=== PATIENT | male | born 1955 | race African-American/Black ===

== ENCOUNTER 2018-04-07 07:46 | Day surgery (SDC) | payer MEDICAID ==
[2018-04-06 13:25] LABS: Absolute Lymphocytes (CBC) 1.1 K/uL (0.7-4.9); Absolute Monocytes 0.9 K/uL (0.1-1.3); Absolute Neutrophil 2.7 K/uL (1.8-8.0); Basophils % 0.7 % (0-1.3); Eosinophils % 1.9 % (0-4.4); Hematocrit 39.2 % (39.6-49.0); Lymphocytes % 22.2 % (15.3-44.8); MCV 83.5 fL (80-100); MPV 7.7 fL (7.6-11.3); Monocytes % 18.2 % (3.3-12.3); RBC Red Blood Cell Count 4.69 M/uL (4.33-5.43)
[2018-04-06 13:41] LABS: Potassium 4.5 mmol/L (3.5-5.1)
[2018-04-06 13:44] LABS: Anisocytosis 1+; Blood Morphology Comment NOTED (NOT SEEN); Platelet Estimate INCR; Polychromasia 1+; Urine White Blood Cell Casts OK
[2018-04-07] MEDS ORDERED: Ringers Lactate 1,000 ML IV ONE (08:37)
[2018-04-07] MEDS ORDERED: CEFAZOLIN/SWI 1gm 1 GM/10 ML SYR ONE (08:37)
[2018-04-07] MEDS ORDERED: NS 0.9% VIAL 20 ML ONE (09:20)
[2018-04-07] MEDS ORDERED: HEPARIN 5000 UNIT/ML 1 ML VIAL ONE (09:21)
[2018-04-07] MEDS: LIDOCAINE 1% MPF 5 ML VIAL ONE ×2 (09:39→09:50)
[2018-04-07] MEDS ORDERED: MIDAZOLAM HCL 2 MG/2 ML INJ ONE (09:53)
[2018-04-07] MEDS ORDERED: PROPOFOL 200 MG/20 ML VIAL IV ONE ×2 (09:53→10:16)
[2018-04-07] MEDS ORDERED: LIDOCAINE 2% MPF 5 ML VIAL ONE (09:53)
--- NOTE | 2018-04-07 11:06 | RAD REPORT ---
EXAM DESCRIPTION: RAD - Fluoroscopy <1 Hour - 04/07/2018 10:54 am CLINICAL HISTORY: Device placement central venous catheter placement FINDINGS: A central venous catheter was placed into the superior vena cava. Multiple fluoroscopic sp ot images are submitted. The examination was performed by Dr. Leach Four fluoroscopic spot image is submitted. Fluoroscopy time 0.6 minutes
--- NOTE | 2018-04-07 11:06 | RAD REPORT ---
EXAM DESCRIPTION: RAD - Chest Single View - 04/07/2018 10:55 am CLINICAL HISTORY: Device placement central venous line placement COMPARISON: January 2018 FINDINGS: A central venous line has been inserted with its tip in the mid superior vena cava. A pne umothorax is not seen Right mass/right lung opacities and pleural effusion are again demonstrated. IMPRESSION: Central venous line with its tip in the mid superior vena cava
[2018-04-07] MEDS ORDERED: HYDROCODONE/APAP 7.5/325 MG TAB ONE (11:56)
[2018-04-07 12:59] VITALS: BP 120/85; TEMP 98; O2SAT 98
--- NOTE | 2018-04-07 13:39 | DS ---
Discharge Note: The patient will go to Day Surgery and home when stable. Disposition: Home. Condition: Stable. Discharge Instructions: Resume home medications and diet. Activity as tolerated. No heavy lifting. Remove outer dressing in 2 days. Shower. Keep wound clean and dry. Keep Steri-Strips on at all t imes. Follow up in my office in 2 weeks. Call for appointment. Follow up [facility] week. Tylenol No. 3 one tablet p.o. q.4 p.r.n. pain. Keep Steri-Strips on at all times. NYDIA/BRITTNEY Voice ID: [id number] Report ID: [id number]
--- NOTE | 2018-04-07 13:39 | OP ---
Date of Procedure: 04/07/2018 Surgeon: Sunny Leach MD Preoperative Diagnosis: Lung cancer. Postoperative Diagnosis: Lung cancer. Procedures Performed: Placement of right internal jugular Port-A-Cath and interpretation of intraope rative fluoroscopy. Estimated Blood Loss: Minimal. Specimen: None. Findings: Normal anatomy. Anesthesia: MAC. Complications: None. Disposition: The patient tolerated the procedure in stable condition and was taken to Recovery in go od general condition. Procedure In Detail: The patient was brought to the OR, placed in supine position. MAC anesthesia w as begun. The patient was prepped and draped in usual sterile fashion. Lidocaine 1% infiltrated loc ally. An 18-gauge needle was used to access the right IJ vein. Guidewire was passed. Position was confirmed with fluoroscopy. A 3-cm counterincision was made. Pocket created. Tunneling device was used to tunnel the catheter between the 2 wounds. Seldinger technique used. Tip of the catheter manuel agusto in the SVC under fluoroscopy. Catheter cut to appropriate size, attached to the Port-A-Cath ivan ce. Port-A-Cath device was attached to subcutaneous tissue with 3-0 Vicryl, and then 3-0 chromic use d to approximate the subcutaneous tissue and close the skin. Catheter flushed with heparin and packe d with heparin with good blood flow. Sterile dressing was applied. The patient was awakened and taken to Recovery in good general condition. NYDIA/MODDanita Voice ID: [id number] Report ID: [id number]
== END 2018-04-07 13:07 | disposition home or self-care (01) ==
LOC: OR 07:46
PROVIDERS: ATTEND Surgery
PROC: 0JH60WZ Insertion of Totally Implantable Vascular Access Device into Chest Subcutaneous Tissue and Fascia, Open Approach (ICD-10-PCS; principal; 2018-04-07 10:00)
DX: C34.91 Malignant neoplasm of unspecified part of right bronchus or lung (principal); Z86.73 Personal history of transient ischemic attack (TIA), and cerebral infarction without residual deficits
CPT/HCPCS: 36415; 71045; 76000; 80048; 85025; J0690; J1644; J2250; J2704

== ENCOUNTER 2018-04-17 13:58 | Inpatient (IN) | payer MEDICAID ==
[2018-04-17] MEDS ORDERED: NA CHLORIDE 0.9% 1,000 ML ONE (14:57)
--- NOTE | 2018-04-17 14:59 | RAD REPORT ---
EXAM DESCRIPTION: CT - Stone Protocol - 04/17/2018 2:50 pm CLINICAL HISTORY: Flank pain. ABD PAIN COMPARISON: Abdomen Pelvis Wo Contrast dated 10/25/2016; Ct Skull/Thigh dated 02/17/2018; Chest Abdo men Pelvis W Cont dated 12/02/2017 TECHNIQUE: Axial images were obtained without oral or IV contrast. Lack of contrast limits solid org an and vascular assessment. The [id number] spans the entirety of the system partially obscuring uppermost abdomen and lung bases. Coronal reformatted images were obtained and reviewed. All CT scans are performed using dose optimization technique as appropriate and may include automated exposure control or mA/KV adjustment according to patient size. FINDINGS: Moderate right pleural effusion is noted, likely chronic. Imaged portions of the liver and spleen show no suspicious findings on non-contrast imaging. The panc reas and adrenal glands are normal. No pathologic lymphadenopathy in the abdomen or pelvis. No urinary tract stones or obstructive uropathy. Small cysts suspected right kidney. No bowel obstruction, free air, free fluid or abscess. Normal appendix noted. Mild lumbosacral degenerative changes. Aortic atherosclerosis is seen. IMPRESSION: No acute intra-abdominal or pelvic finding identified. Moderate right pleural effusion, likely chronic.
--- NOTE | 2018-04-17 15:31 | RAD REPORT ---
EXAM DESCRIPTION: RAD - Chest Single View - 04/17/2018 3:24 pm CLINICAL HISTORY: MALAISE Chest pain. COMPARISON: Chest Single View dated 04/07/2018; Chest Pa And Lat (2 Views) dated 05/27/2017; Chest Si ngle View dated 05/26/2017; Chest Pa And Lat (2 Views) dated 04/14/2017 FINDINGS: Portable technique limits examination quality. Chronic right pleural effusion is noted with chronic right mid lung opacification and volume loss. Ri ght-sided venous catheter tip in the SVC. The left lung is grossly clear. The heart is normal in size . No displaced fractures.
[2018-04-17 16:04] LABS: Absolute Lymphocytes (CBC) 0.3 K/uL (0.7-4.9); Absolute Neutrophil 1.5 K/uL (1.8-8.0); Basophils % 0.3 % (0-1.3); Eosinophils % 7.4 % (0-4.4); Hematocrit 37.7 % (39.6-49.0); Lymphocytes % 16.4 % (15.3-44.8); MCH 27.6 pg (27.0-35.0); MCV 82.8 fL (80-100); MPV 9.6 fL (7.6-11.3); Monocytes % 1.2 % (3.3-12.3); RBC Red Blood Cell Count 4.56 M/uL (4.33-5.43)
[2018-04-17 16:06] LABS: Protime INR 1.08
[2018-04-17 16:20] LABS: ALT/SGPT 26 U/L (12-78); AST/SGOT 41 U/L (15-37); Alkaline Phosphatase 64 U/L (45-117); BUN Blood Urea Nitrogen 15 mg/dL (7-18); Bicarbonate 28 mmol/L (21-32); Bilirubin Direct 0.2 mg/dL (0-0.2); Bilirubin Total 0.5 mg/dL (0.2-1.0); Glucose Level 99 mg/dL (74-106); Protein, Total 6.9 g/dL (6.4-8.2); Sodium Level 141 mmol/L (136-145)
[2018-04-17 16:21] LABS: Creatine Phosphokinase 190 U/L (39-308); Lipase 229 U/L (73-393); Troponin (Emerg Dept Use Only) < 0.02 ng/mL (0.0-0.045)
--- NOTE | 2018-04-17 16:21 | RAD REPORT ---
EXAM DESCRIPTION: CT - Thorax Wo Con CLINICAL HISTORY: Chest pain WEAKNESS COMPARISON: Chest Abdomen W Con dated 03/25/2017Chest Abdomen W Con dated 03/25/2017; Chest Abdomen Pelvis W Cont dated 12/02/2017 FINDINGS: Moderate chronic right pleural effusion is noted. Ill-defined right mid and upper lung pul monary consolidation again seen, unchanged. The left lung appears emphysematous. Right-sided port catheter its tip in the SVC. No bulky intrathoracic lymphadenopathy. No lytic or blastic bone lesion. No gross upper abdominal finding. All CT scans are performed using dose optimization technique as appropriate and may include automated exposure control or mA/KV adjustment according to patient size. IMPRESSION: Moderate right pleural effusion, chronic in appearance. Right mid lung and right upper lobe chronic lung consolidation appears unchanged. Examination is limited by lack of IV contrast.
[2018-04-17 16:53] LABS: Platelet Estimate ADEQ; Urine White Blood Cell Casts OK
[2018-04-17 16:54] LABS: Blood Morphology Comment NOT SEEN (NOT SEEN)
--- NOTE | 2018-04-17 17:03 | EDPHYS ---
Physician Documentation [facility] Emergency Department Name: Danny Sommer Age: 63 yrs Sex: Male : 1955 Arrival Date: 04/17/2018 Time: 13:59 Bed 7 Private MD: Out, [facility] ED Physician Avila Burks HPI: 04/17 15:17 This 63 yrs old Black Male presents to ER via Wheelchair with complaints of Vomiting. gs 15:17 The patient presents to the emergency department with vomiting. Onset: The gs symptoms/episode began/occurred 3 day(s) ago. Possible causes: unknown. The symptoms are aggravated by nothing. The symptoms are alleviated by nothing. Associated signs and symptoms: Pertinent positives: anorexia, constipation, Pertinent negatives: dysuria, vomiting. Severity of symptoms: At their worst the symptoms were moderate in the emergency department the symptoms. The patient has experienced similar episodes in the past, a few times. The patient has been recently seen by a physician: 2 week(s) ago, had chemo. Historical: - Allergies: 14:02 NKDA; la1 - PMHx: 14:02 CVA; Hypertension; Lung Cancer; la1 - Immunization history:: Adult Immunizations up to date. - Social history:: Smoking status: Patient/guardian denies using tobacco. - Ebola Screening: : No symptoms or risks identified at this time. ROS: 15:17 All other systems are negative. gs Exam: 15:17 Head/Face: Normocephalic, atraumatic. Eyes: Pupils equal round and reactive to light, gs extra-ocular motions intact. Lids and lashes normal. Conjunctiva and sclera are non-icteric and not injected. Cornea within normal limits. Periorbital areas with no swelling, redness, or edema. ENT: Nares patent. No nasal discharge, no septal abnormalities noted. Tympanic membranes are normal and external auditory canals are clear. Oropharynx with no redness, swelling, or masses, exudates, or evidence of obstruction, uvula midline. Mucous membranes moist. Neck: Trachea midline, no thyromegaly or masses palpated, and no cervical lymphadenopathy. Supple, full range of motion without nuchal rigidity, or vertebral point tenderness. No Meningismus. Chest/axilla: Normal chest wall appearance and motion. Nontender with no deformity. No lesions are appreciated. 15:17 Abdomen/GI: Soft, non-tender, with normal bowel sounds. No distension or tympany. No guarding or rebound. No evidence of tenderness throughout. Back: No spinal tenderness. No costovertebral tenderness. Full range of motion. Skin: Warm, dry with normal turgor. Normal color with no rashes, no lesions, and no evidence of cellulitis. MS/ Extremity: Pulses equal, no cyanosis. Neurovascular intact. Full, normal range of motion. Neuro: Awake and alert, GCS 15, oriented to person, place, time, and situation. Cranial nerves II-XII grossly intact. Motor strength 5/5 in all extremities. Sensory grossly intact. Cerebellar exam normal. Normal gait. 15:17 Constitutional: The patient appears alert, awake, frail. 15:17 Cardiovascular: Rate: tachycardic, Rhythm: regular, Pulses: no pulse deficits are appreciated. 15:17 ECG was reviewed by the Attending Physician. 15:17 Respiratory: the patient does not display signs of respiratory distress, Respirations: tachypnea, Breath sounds: are clear throughout. Vital Signs: 14:05 BP 98 / 90; Pulse 131; Resp 26; Temp 98.2; Pulse Ox 98% on R/A; Weight 68.04 kg; la1 14:10 BP 107 / 87; Pulse 124; Resp 30; Pulse Ox 99% on R/A; Pain 0/10; kr2 15:24 BP 123 / 100; Pulse 108; Resp 27; Pulse Ox 100% ; kr2 17:08 Pulse 102; Resp 17; Pulse Ox 100% ; sg 14:10 Dr. Burks notified of vital signs kr2 MDM: 14:27 Patient medically screened. 15:17 Differential diagnosis: Nonspecific abd pain, gastroenteritis, dehydration,sepsis. Data reviewed: vital signs, nurses notes. 16:59 Response to treatment: the patient's symptoms have mildly improved after treatment. Physician consultation: Jayy Patel MD regarding admission, would like admission per Dr. Felecia Reyez MD. Admission orders: after a detailed discussion of the patient's condition and case, the admit orders are written by md. 04/17 14:28 Order name: Basic Metabolic Panel 04/17 14:28 Order name: Blood Culture Adult (2) 04/17 14:28 Order name: CBC with Diff; Complete Time: 16:59 04/17 14:28 Order name: CPK; Complete Time: 16:37 04/17 14:28 Order name: Lactate; Complete Time: 16:37 04/17 14:28 Order name: LFT's; Complete Time: 16:37 04/17 14:28 Order name: Lipase; Complete Time: 16:37 04/17 14:28 Order name: Procalcitonin; Complete Time: 16:49 04/17 14:28 Order name: Protime (+inr); Complete Time: 16:37 04/17 14:28 Order name: Troponin (emerg Dept Use Only); Complete Time: 16:37 04/17 14:28 Order name: Urine Microscopic Only 04/17 14:28 Order name: Basic Metabolic Panel; Complete Time: 16:37 EDNE 04/17 14:28 Order name: Blood Culture [facility] 04/17 16:29 Order name: CBC Smear Scan; Complete Time: 16:59 EDNE 04/17 14:28 Order name: Chest Single View XRAY; Complete Time: 15:41 04/17 14:28 Order name: Accucheck; Complete Time: 15:52 04/17 14:28 Order name: Cardiac monitoring; Complete Time: 14:40 04/17 14:28 Order name: EKG - Nurse/Tech; Complete Time: 15:52 04/17 14:28 Order name: IV Saline Lock - Large Bore; Complete Time: 15:52 04/17 14:28 Order name: Labs collected and sent; Complete Time: 15:52 04/17 14:28 Order name: O2 Per Protocol; Complete Time: 14:40 04/17 14:28 Order name: O2 Sat Monitoring; Complete Time: 14:40 04/17 14:28 Order name: CT Stone Protocol; Complete Time: 15:41 04/17 15:42 Order name: CT Chest Wo Con; Complete Time: 16:37 gs EC:17 Rate is 111 beats/min. Rhythm is regular. DC interval is normal. QRS interval is gs normal. QT interval is normal. T waves are Normal. No ST changes noted. Clinical impression: Abnormal EKG without significant change. Interpreted by me. Administered Medications: 15:51 Drug: NS 0.9% 1000 ml Route: IV; Rate: 1 bolus; Site: Port-a-cath; kr2 18:31 Follow up: IV Status: Completed infusion; IV Intake: 1000ml ss Point of Care Testing: Blood Glucose: 15:44 Blood Glucose: 107 mg/dL; kr2 Ranges: Critical Glucose Levels:Adult <50 mg/dl or >400 mg/dl <40 mg/dl or >180 mg/dl Disposition: 04/17/18 17:02 Hospitalization ordered by Felecia Reyez for Observation. Preliminary diagnosis are Vomiting, Dehydration. - Bed requested for Telemetry/MedSurg (observation). - Status is Observation. ak1 - Condition is Stable. - Problem is an ongoing problem. - Symptoms have improved. UTI on Admission? No Signatures: Dispatcher [employer] EDMS Bebeto Snider RN RN la1 Alondra Gonzalez RN RN ak1 Amanda Ghosh RN RN df Starr, Gregory, MD MD Hollie Davis RN RN kr2 Dee Browne RN ss Corrections: (The following items were deleted from the chart) 18:42 17:02 Hospitalization Ordered by Felecia Reyez MD for Observation. Preliminary df diagnosis is Vomiting; Dehydration. Bed requested for Telemetry/MedSurg (observation). Status is Observation. Condition is Stable. Problem is an ongoing problem. Symptoms have improved. UTI on Admission? No. gs 19:52 18:42 04/17/2018 17:02 Hospitalization Ordered by Felecia Reyez MD for Observation. ak1 Preliminary diagnosis is Vomiting; Dehydration. Bed requested for Telemetry/MedSurg (observation). Status is Observation. Condition is Stable. Problem is an ongoing problem. Symptoms have improved. UTI on Admission? No. df
--- NOTE | 2018-04-17 17:03 | ER ---
Nurse's Notes [facility] Name: Danny Sommer Age: 63 yrs Sex: Male : 1955 Arrival Date: 04/17/2018 Time: 13:59 Bed 7 Private MD: Out, [facility] Diagnosis: Vomiting;Dehydration Presentation: 04/17 14:02 Presenting complaint: Patient states: I have lung CA and I just feel bad, having N/V/D, la1 and I cant sleep at night. Transition of care: patient was not received from another setting of care. Onset of symptoms was April 17, 2018. Risk Assessment: Do you want to hurt yourself or someone else? Patient reports no desire to harm self or others. Initial Sepsis Screen: Does the patient meet any 2 criteria? RR > 20 per min. HR > 90 bpm. Does the patient have a suspected source of infection? Yes: Other: LUNG CANCER If YES to both, name of provider notified: Avila Burks MD Care prior to arrival: None. 14:02 Method Of Arrival: Wheelchair la1 14:02 Acuity: FUENTES 2 la1 Historical: - Allergies: 14:02 NKDA; la1 - PMHx: 14:02 CVA; Hypertension; Lung Cancer; la1 - Immunization history:: Adult Immunizations up to date. - Social history:: Smoking status: Patient/guardian denies using tobacco. - Ebola Screening: : No symptoms or risks identified at this time. Screenin:10 Abuse screen: Denies threats or abuse. Denies injuries from another. Nutritional kr2 screening: cachectic, history of lung cancer, reports he is on chemo at this time. Tuberculosis screening: No symptoms or risk factors identified. Fall Risk Ambulatory Aid- Crutches/Cane/Walker (15 pts). Gait- Impaired (20 pts.). Assessment: 14:10 General: Appears in no apparent distress. uncomfortable, cachectic, Behavior is calm, kr2 cooperative. Pain: Denies pain. Neuro: Level of Consciousness is awake, alert, obeys commands, Oriented to person, place, time, situation, Appropriate for age. Cardiovascular: Patient's skin is warm and dry. Rhythm is sinus tachycardia. Cardiovascular: Port-a-cath to right chest. Respiratory: Airway is patent Respiratory effort is even, unlabored, Respiratory pattern is symmetrical, tachypnea Breath sounds are diminished. GI: Abdomen is flat, non-distended, Bowel sounds present X 4 quads. EENT: Oral mucosa is dry. Derm: Skin with poor turgor Skin is pink, warm \T\ dry. 15:00 Reassessment: Patient in CT at this time. kr2 15:15 Reassessment: Patient appears in no apparent distress at this time. Patient and/or kr2 family updated on plan of care and expected duration. Pain level reassessed. Patient is alert, oriented x 3, equal unlabored respirations, skin warm/dry/pink. Vital Signs: 14:05 BP 98 / 90; Pulse 131; Resp 26; Temp 98.2; Pulse Ox 98% on R/A; Weight 68.04 kg; la1 14:10 BP 107 / 87; Pulse 124; Resp 30; Pulse Ox 99% on R/A; Pain 0/10; kr2 15:24 BP 123 / 100; Pulse 108; Resp 27; Pulse Ox 100% ; kr2 17:08 Pulse 102; Resp 17; Pulse Ox 100% ; sg 14:10 Dr. Burks notified of vital signs kr2 ED Course: 13:59 Patient arrived in ED. mr 13:59 Out, of [facility] is Private Physician. mr 14:05 Triage completed. la1 14:05 Arm band placed on left wrist. la1 14:10 Patient has correct armband on for positive identification. Placed in gown. Bed in low kr2 position. Call light in reach. Side rails up X2. security monitor on. Pulse ox on. NIBP on. Door closed. Lights dimmed. Warm blanket given. Pillow given. Head of bed elevated. 14:19 Avila Burks MD is Attending Physician. gs 14:50 CT Stone Protocol In Process Unspecified. EDMS 14:50 CT completed. Patient tolerated procedure well. Patient moved back from CT. ka1 15:20 EKG done, by ED staff, reviewed by Avila Burks MD. kr2 15:24 Chest Single View XRAY In Process Unspecified. EDMS 15:30 Accessed Port-a-Cath. Blood collected. using accessed w/ # 20 Early needle, ,sterile sg technique, per hospital protocol. Clean \T\ dry. Good blood return. Flushes easily. 15:56 Gagandeep Malave, RN is Primary Nurse. sg 16:11 CT completed. Patient moved to CT via stretcher. Patient moved back from CT. cw1 16:29 CT Chest Wo Con In Process Unspecified. EDMS 17:02 Felecia Reyez MD is Hospitalizing Provider. 19:03 No provider procedures requiring assistance completed. Patient admitted, IV remains in ak1 place. Administered Medications: 15:51 Drug: NS 0.9% 1000 ml Route: IV; Rate: 1 bolus; Site: Port-a-cath; kr2 18:31 Follow up: IV Status: Completed infusion; IV Intake: 1000ml ss Point of Care Testing: Blood Glucose: 15:44 Blood Glucose: 107 mg/dL; kr2 Ranges: Intake: 18:31 IV: 1000ml; Total: 1000ml. ss Outcome: 17:02 Decision to Hospitalize by Provider. gs 19:04 Condition: good ak1 19:04 Instructed on the need for admit. 19:51 Admitted to Med/surg accompanied by tech, via stretcher, room 214, with chart, Report ak1 called to Sharifa Daly 19:52 Patient left the ED. ak1 Signatures: Dispatcher [employer] EDMS Gagandeep Malave, RN RN sg Hank, Fartun mr Dee Browne, RN Jennifer Martinez cw1 Bebeto Snider RN RN Alondra Kraft RN RN janey1 Avila Burks MD MD gs Reaves, Karey, RN RN kr2 Jayshree Friend Corrections: (The following items were deleted from the chart) 14:05 14:02 Initial Sepsis Screen: Does the patient meet any 2 criteria? No. Patient's la1 initial sepsis screen is negative. Does the patient have a suspected source of infection? No. Patient's initial sepsis screen is negative. la1
[2018-04-17] MEDS ORDERED: ONDANSETRON 4 MG/2 ML VIAL IV PRN (19:41)
[2018-04-17] MEDS ORDERED: ACETAMINOPHEN 500 MG TAB PO PRN (19:41)
[2018-04-17 20:15] VITALS: BMI 18.0
[2018-04-17] MEDS: NA CHLORIDE 0.9% 1,000 ML IV SCH (20:31)
--- NOTE | 2018-04-17 20:49 | P.HP ---
Certification for Inpatient Patient admitted to: Observation With expected LOS: <2 Midnights Practitioner: I am a practitioner with admitting privileges, knowledge of patient current condition, hospital course, and medical plan of care. Services: Services provided to patient in accordance with Admission requirements found in Title 42 Section 412.3 of the Code of Federal Regulations Patient History Date of Service: 04/17/18 Reason for admission: gastroenteritis History of Present Illness: Mr Kemal monson 3-year-old gentleman with history of lung cancer on ongoing chemotherapy, last 1 was 2 weeks ago, who presents to ED complaining of nonspecific abdominal pain associated with nausea and vomiting. He stated that his symptoms has been going on for 3 days, he also had poor appetite. He was constipated on the 1st day when the symptoms start. He denied any fever or chills. In ER lab work remarkable for leukopenia 3.0 K, normal lactate and procalcitonin. CT chest shows chronic moderate right pleural effusion with also chronic right lower and middle lobe opacity without change. No acute abnormalities seen. CT abdomen and pelvis shows not acute abnormality either. Allergies No Known Drug Allergies Allergy (Verified 04/17/18 20:14) Unknown Home Medications: Albuterol Sulfate [Proair Hfa] 8.5 gm IH TID PRN #1 hfa.aer.[email or web address] 05/28/17 Pantoprazole [Protonix Tab*] 40 mg PO DAILYAC #30 tab 05/28/17 Diphenhydramine HCl [Sleep Aid] 25 mg PO BEDTIME PRN 04/07/18 Fluticasone Propionate [24 Hour Allergy] 9.9 ml NS DAILY 04/07/18 Methylprednisolone [Medrol dosepack] 4 mg PO DIRECTED 04/07/18 - Past Medical/Surgical History Has patient received pneumonia vaccine in the past: No Diabetic: No -: HTN -: Lung cancer -: Tobacco abuse -: COPD -: History CVA -: Foot surgery -: Surgery to the salivary gland -: Hemorrhoid surgery Psychosocial/ Personal History: The patient lives by himself. He is single. He has 5 children. - Family History Sister -: Hypertension - Social History Smoking Status: Current some day smoker Counseled patient to stop smoking for: less than 10 minutes Alcohol use: Yes CD- Drugs: No Caffeine use: Yes Place of Residence: Home Review of Systems 10-point ROS is otherwise unremarkable Physical Examination - Vital Signs Temperature: 98.2 F Blood Pressure: 123/100 Pulse: 102 Respirations: 17 - Physical Exam General: Alert, In no apparent distress, Cachectic HEENT: Atraumatic, PERRLA, Mucous membr. moist/pink, EOMI, Sclerae nonicteric Neck: Supple, 2+ carotid pulse no bruit, No LAD, Without JVD or thyroid abnormality Respiratory: Normal air movement, Diminished (Right-sided), Crackles/rales Cardiovascular: Regular rate/rhythm, Normal S1 S2 Gastrointestinal: Normal bowel sounds, No tenderness Musculoskeletal: No tenderness Integumentary: No rashes Neurological: Normal speech, Normal strength at 5/5 x4 extr, Normal tone, Normal affect Lymphatics: No axilla or inguinal lymphadenopathy - Studies Laboratory Data (last 24 hrs) 04/17/18 15:45: PT 12.8 H, INR 1.08 04/17/18 15:45: WBC 2.0 L D, Hgb 12.6 L, Hct 37.7 L, Plt Count 181 D 04/17/18 15:45: Sodium 141, Potassium 4.0, BUN 15, Creatinine 0.80, Glucose 99, Total Bilirubin 0.5, AST 41 H, ALT 26, Alkaline Phosphatase 64, Lipase 229 Assessment and Plan - Problems (Diagnosis) (1) Gastroenteritis Current Visit: Yes Status: Acute (2) COPD (chronic obstructive pulmonary disease) Onset Date: 05/27/17 Current Visit: No Status: Chronic Qualifiers: COPD type: emphysema Emphysema type: unspecified Qualified Code(s): J43.9 - Emphysema, unspecified (3) Hypertension Onset Date: 05/27/17 Current Visit: No Status: Chronic Qualifiers: Hypertension type: essential hypertension Qualified Code(s): I10 - Essential (primary) hypertension (4) Lung cancer Onset Date: 05/27/17 Current Visit: No Status: Chronic Qualifiers: Laterality: right Lung location: upper lobe of lung Qualified Code(s): C34.11 - Malignant neoplasm of upper lobe, right bronchus or lung (5) Tobacco abuse Onset Date: 05/27/17 Current Visit: No Status: Chronic - Plan Patient will be admitted to the hospital due to nonspecific abdominal pain associated with nausea vomiting, possible secondary to acute gastroenteritis. Will continue IV fluids and symptomatic medication. Will start clear liquid diet and advance as tolerated. - Advance Directives Does patient have a Living Will: No Does patient have a Durable POA for Healthcare: Yes - Code Status/Comfort Care Code Status Assessed: Yes Code Status: Full Code
[2018-04-17 23:55] LABS: Urine Appearance CLEAR; Urine Blood NEGATIVE (NEG); Urine Color DK YELLOW; Urine Glucose NEGATIVE (NEG); Urine Protein 2+ (NEG); Urine Specific Gravity >=1.030 (1.005-1.030); Urine pH 6.5 (5.0-7.0)
[2018-04-18] LABS: Urine Bilirubin NEGATIVE (NEG)
[2018-04-18 00:24] LABS: Urine Bacteria <20 /HPF (NONE SEEN); Urine Culture Reflex Order NOT NEEDED; Urine Mucus LIGHT /HPF (NONE SEEN); Urine RBC NONE SEEN /HPF (NONE SEEN)
[2018-04-18] MEDS: NA CHLORIDE 0.9% 1,000 ML IV SCH ×2 (05:48→15:41)
[2018-04-18 06:34] LABS: Absolute Lymphocytes (CBC) 0.4 K/uL (0.7-4.9); Absolute Monocytes 0.1 K/uL (0.1-1.3); Absolute Neutrophil 0.6 K/uL (1.8-8.0); Basophils % 3.2 % (0-1.3); Eosinophils % 13.6 % (0-4.4); Lymphocytes % 31.8 % (15.3-44.8); MCH 27.3 pg (27.0-35.0); MCV 82.6 fL (80-100); MPV 9.6 fL (7.6-11.3); Monocytes % 4.5 % (3.3-12.3); RBC Red Blood Cell Count 3.87 M/uL (4.33-5.43)
[2018-04-18 06:48] LABS: ALT/SGPT 24 U/L (12-78); AST/SGOT 32 U/L (15-37); Albumin 2.8 g/dL (3.4-5.0); Alkaline Phosphatase 56 U/L (45-117); BUN Blood Urea Nitrogen 15 mg/dL (7-18); Bicarbonate 25 mmol/L (21-32); Bilirubin Total 0.5 mg/dL (0.2-1.0); Glucose Level 81 mg/dL (74-106); Phosphorus 2.8 mg/dL (2.5-4.9); Potassium 4.2 mmol/L (3.5-5.1); Protein, Total 6.3 g/dL (6.4-8.2); Sodium Level 142 mmol/L (136-145)
--- NOTE | 2018-04-18 07:05 | EKG ---
Test Date: 2018-04-17 Test Time: 15:14:14 Commissioning Specialist: BERNICE MEASUREMENT RESULTS: Intervals: Rate: 111 MO: 136 QRSD: 74 QT: 332 QTc: 451 [place]: P: 81 MO: 136 QRS: -32 T: 74 INTERPRETIVE STATEMENTS: Sinus tachycardia Possible Left atrial enlargement Left axis deviation Abnormal ECG Compared to ECG 05/26/2017 16:55:03 Left-axis deviation now present Sinus bradycardia no longer present ST (T wave) deviation no longer present Early repolarization no longer present Electronically Signed On 04-18-18 07:04:23 GRAIN ELEVATOR AGENT by Syed Barreto
[2018-04-18 08:08] LABS: Platelet Estimate ADEQ; Urine White Blood Cell Casts OK
[2018-04-18 08:09] LABS: Blood Morphology Comment NOT SEEN (NOT SEEN)
--- NOTE | 2018-04-18 13:55 | P.PN ---
Subjective Date of Service: 04/18/18 Chief Complaint: gastroenteritis Subjective: No C/O voiced, Tolerating diet, Ambulating, Improving, Doing well Review of Systems 10-point ROS is otherwise unremarkable Physical Examination - Vital Signs Temperature: 99 F Blood Pressure: 125/84 Pulse: 91 Respirations: 18 Pulse Ox (%): 98 - Physical Exam General: Alert, In no apparent distress HEENT: Atraumatic, PERRLA, EOMI Neck: Supple, JVD not distended Respiratory: Clear to auscultation bilaterally, Normal air movement Cardiovascular: Regular rate/rhythm, Normal S1 S2 Gastrointestinal: Normal bowel sounds, No tenderness Musculoskeletal: No tenderness Integumentary: No rashes Neurological: Normal speech, Normal tone, Normal affect Lymphatics: No axilla or inguinal lymphadenopathy - Studies Laboratory Data (last 24 hrs) 04/17/18 15:45: PT 12.8 H, INR 1.08 04/17/18 15:45: WBC 2.0 L D, Hgb 12.6 L, Hct 37.7 L, Plt Count 181 D 04/17/18 15:45: Sodium 141, Potassium 4.0, BUN 15, Creatinine 0.80, Glucose 99, Total Bilirubin 0.5, AST 41 H, ALT 26, Alkaline Phosphatase 64, Lipase 229 Medications List Reviewed: Yes Assessment And Plan - Current Problems (Diagnosis) (1) Gastroenteritis Onset Date: 04/18/18 Current Visit: Yes Status: Acute Plan: Patient with chemotherapy related gastroenteritis. -intractable nausea and vomiting on Zofran at this time. On clear liquids tolerating well. -will BMs diet as tolerated today. -continue IV fluids for another 24 hr for dehydration anticipate discharge in 24 -48 hr (2) Lung cancer Onset Date: 05/27/17 Current Visit: No Status: Chronic Qualifiers: Laterality: right Lung location: upper lobe of lung Qualified Code(s): C34.11 - Malignant neoplasm of upper lobe, right bronchus or lung (3) COPD (chronic obstructive pulmonary disease) Onset Date: 05/27/17 Current Visit: No Status: Chronic Qualifiers: COPD type: emphysema Emphysema type: unspecified Qualified Code(s): J43.9 - Emphysema, unspecified (4) History of CVA (cerebrovascular accident) Current Visit: No Status: Chronic (5) Hypertension Onset Date: 05/27/17 Current Visit: No Status: Chronic Qualifiers: Hypertension type: essential hypertension Qualified Code(s): I10 - Essential (primary) hypertension (6) Tobacco abuse Onset Date: 05/27/17 Current Visit: No Status: Chronic (7) GERD (gastroesophageal reflux disease) Onset Date: 05/27/17 Current Visit: No Status: Suspected Qualifiers: Esophagitis presence: esophagitis presence not specified Qualified Code(s) : K21.9 - Gastro-esophageal reflux disease without esophagitis Discharge Plan: Home Plan to discharge in: 48 Hours - Code Status/Comfort Care Code Status Assessed: Yes Critical Care: No
[2018-04-18] MEDS ORDERED: ENSURE ENLIVE 237 ML CAN PO SCH (21:00)
[2018-04-18] MEDS: ENSURE ENLIVE 237 ML CAN PO SCH (21:29)
[2018-04-19] MEDS: NA CHLORIDE 0.9% 1,000 ML IV SCH ×3 (03:06→21:07)
[2018-04-19 06:08] LABS: ALT/SGPT 23 U/L (12-78); AST/SGOT 34 U/L (15-37); Albumin 2.6 g/dL (3.4-5.0); Alkaline Phosphatase 51 U/L (45-117); BUN Blood Urea Nitrogen 9 mg/dL (7-18); Bicarbonate 24 mmol/L (21-32); Bilirubin Total 0.4 mg/dL (0.2-1.0); Glucose Level 91 mg/dL (74-106); Magnesium 1.8 mg/dL (1.8-2.4); Phosphorus 2.3 mg/dL (2.5-4.9); Potassium 3.9 mmol/L (3.5-5.1); Protein, Total 6.1 g/dL (6.4-8.2); Sodium Level 139 mmol/L (136-145)
[2018-04-19 06:21] LABS: Absolute Lymphocytes (CBC) 0.4 K/uL (0.7-4.9); Absolute Monocytes 0.1 K/uL (0.1-1.3); Absolute Neutrophil 0.1 K/uL (1.8-8.0); Basophils % 6.5 % (0-1.3); Eosinophils % 19.9 % (0-4.4); Hematocrit 31.5 % (39.6-49.0); Lymphocytes % 53.5 % (15.3-44.8); MCH 27.5 pg (27.0-35.0); MCV 81.6 fL (80-100); MPV 9.4 fL (7.6-11.3); RBC Red Blood Cell Count 3.86 M/uL (4.33-5.43)
[2018-04-19 06:56] LABS: Blood Morphology Comment NOT SEEN (NOT SEEN); Platelet Estimate ADEQ; Urine White Blood Cell Casts OK
[2018-04-19] MEDS: ENSURE ENLIVE 237 ML CAN PO SCH ×2 (09:00→21:00)
[2018-04-19 10:41] LABS: Absolute Lymphocytes (CBC) 0.3 K/uL (0.7-4.9); Absolute Monocytes 0.1 K/uL (0.1-1.3); Absolute Neutrophil 0.1 K/uL (1.8-8.0); Basophils % 7.8 % (0-1.3); Eosinophils % 15.8 % (0-4.4); Hematocrit 29.6 % (39.6-49.0); Lymphocytes % 52.1 % (15.3-44.8); MCH 27.5 pg (27.0-35.0); MCV 80.6 fL (80-100); MPV 9.2 fL (7.6-11.3); Monocytes % 10.3 % (3.3-12.3); RBC Red Blood Cell Count 3.68 M/uL (4.33-5.43)
[2018-04-19] MEDS ORDERED: POTASSIUM CL SA 10 MEQ TAB PO ONE (11:01)
[2018-04-19 11:23] LABS: Anisocytosis 1+; Blood Morphology Comment NOTED (NOT SEEN); Platelet Estimate ADEQ; Platelets, Giant FEW
[2018-04-19] MEDS: POTASS/SODIUM PHOSPHATE 1 PKT POWD.PACK PO SCH ×3 (12:51→16:20)
[2018-04-19] MEDS: TBO-FILGRASTIM 480 MCG/0.8 ML SYR SQ SCH (14:24)
--- NOTE | 2018-04-19 15:33 | P.PN ---
Subjective Date of Service: 04/19/18 Chief Complaint: gastroenteritis Patient seen and examined at bedside with RN. Chart reviewed. This morning patient is complaining of having some loose stool. Patient is a very cachectic- appearing and mild distress Review of Systems 10-point ROS is otherwise unremarkable Physical Examination - Vital Signs Temperature: 97.2 F Blood Pressure: 138/86 Pulse: 89 Respirations: 16 Pulse Ox (%): 98 - Physical Exam General: Alert, Oriented x3, Cachectic, Mild distress HEENT: Atraumatic, PERRLA, EOMI Neck: Supple, JVD not distended Respiratory: Clear to auscultation bilaterally, Normal air movement Cardiovascular: Regular rate/rhythm, Normal S1 S2 Gastrointestinal: Normal bowel sounds, No tenderness Musculoskeletal: No tenderness Integumentary: No rashes Neurological: Normal speech, Normal tone, Normal affect Lymphatics: No axilla or inguinal lymphadenopathy - Studies Laboratory Data (last 24 hrs) 04/19/18 09:58: WBC 0.6 L* D, Hgb 10.1 L, Hct 29.6 L, Plt Count 200 04/19/18 05:20: Sodium 139, Potassium 3.9, BUN 9, Creatinine 0.70, Glucose 91, Phosphorus 2.3 L, Magnesium 1.8, Total Bilirubin 0.4, AST 34, ALT 23, Alkaline Phosphatase 51 04/19/18 05:20: WBC 0.7 L* D, Hgb 10.6 L, Hct 31.5 L, Plt Count 204 Medications List Reviewed: Yes Assessment And Plan - Current Problems (Diagnosis) (1) Neutropenia Current Visit: Yes Status: Acute Plan: Neutropenia with white blood cell count of 0.6 steadily declining. -patient's absolute neutrophil count today has been less than 90 -patient is at high risk for opportunistic infection along with some severe infection. -given the recent history of diarrhea and continued loose stool patient needs to be on a prophylactic antibiotics -patient will also need treatment with filgratrim till ANC > 2000 -oncology has been consulted. Recommendations appreciated at this time Qualifiers: Neutropenia type: secondary to cancer chemotherapy Qualified Code(s): D70.1 - Agranulocytosis secondary to cancer chemotherapy; T45.1X5A - Adverse effect of antineoplastic and immunosuppressive drugs, initial encounter (2) Gastroenteritis Onset Date: 04/18/18 Current Visit: Yes Status: Acute Plan: Patient with chemotherapy related gastroenteritis versus infectious gastroenteritis. -nausea and vomiting resolved today -continued to have loose stools at this time -continue IV fluids (3) Lung cancer Onset Date: 05/27/17 Current Visit: No Status: Chronic Qualifiers: Laterality: right Lung location: upper lobe of lung Qualified Code(s): C34.11 - Malignant neoplasm of upper lobe, right bronchus or lung (4) COPD (chronic obstructive pulmonary disease) Onset Date: 05/27/17 Current Visit: No Status: Chronic Qualifiers: COPD type: emphysema Emphysema type: unspecified Qualified Code(s): J43.9 - Emphysema, unspecified (5) History of CVA (cerebrovascular accident) Current Visit: No Status: Chronic (6) Hypertension Onset Date: 05/27/17 Current Visit: No Status: Chronic Qualifiers: Hypertension type: essential hypertension Qualified Code(s): I10 - Essential (primary) hypertension (7) Tobacco abuse Onset Date: 05/27/17 Current Visit: No Status: Chronic (8) GERD (gastroesophageal reflux disease) Onset Date: 05/27/17 Current Visit: No Status: Suspected Qualifiers: Esophagitis presence: esophagitis presence not specified Qualified Code(s) : K21.9 - Gastro-esophageal reflux disease without esophagitis - Plan Awaiting clinical improvement at this time. With absolute neutrophil count of less than 100 patient is at high risk for [employer] versus severe infection. Patient started on Levaquin 500 and was given filgrastim today. Will repeat CBC tomorrow to monitor for any changes Discharge Plan: Home Plan to discharge in: 48 Hours - Code Status/Comfort Care Code Status Assessed: Yes Critical Care: No
[2018-04-19] MEDS: MELATONIN 3 MG TABLET PO SCH (21:07)
[2018-04-20 05:56] LABS: Absolute Lymphocytes (CBC) 0.3 K/uL (0.7-4.9); Absolute Monocytes 0.2 K/uL (0.1-1.3); Absolute Neutrophil 0.1 K/uL (1.8-8.0); Basophils % 4.9 % (0-1.3); Eosinophils % 12.3 % (0-4.4); Hematocrit 30.2 % (39.6-49.0); MCH 27.5 pg (27.0-35.0); MCV 80.2 fL (80-100); MPV 8.8 fL (7.6-11.3); Monocytes % 25.5 % (3.3-12.3); RBC Red Blood Cell Count 3.77 M/uL (4.33-5.43)
[2018-04-20 06:15] LABS: ALT/SGPT 21 U/L (12-78); AST/SGOT 33 U/L (15-37); Albumin 2.6 g/dL (3.4-5.0); Alkaline Phosphatase 52 U/L (45-117); BUN Blood Urea Nitrogen 10 mg/dL (7-18); Bicarbonate 25 mmol/L (21-32); Bilirubin Total 0.5 mg/dL (0.2-1.0); Glucose Level 85 mg/dL (74-106); Magnesium 1.7 mg/dL (1.8-2.4); Phosphorus 3.1 mg/dL (2.5-4.9); Potassium 3.9 mmol/L (3.5-5.1); Protein, Total 6.2 g/dL (6.4-8.2); Sodium Level 137 mmol/L (136-145)
[2018-04-20 08:10] LABS: Blood Morphology Comment NOTED (NOT SEEN); Platelet Estimate ADEQ
[2018-04-20 08:11] LABS: Anisocytosis 2+; Poikilocytosis 1+
[2018-04-20] MEDS: NA CHLORIDE 0.9% 1,000 ML IV SCH ×2 (10:08→17:41)
[2018-04-20] MEDS: levoFLOXacin 500 MG TAB PO SCH (10:08)
[2018-04-20] MEDS: TBO-FILGRASTIM 480 MCG/0.8 ML SYR SQ SCH (10:09)
[2018-04-20] MEDS: ENSURE ENLIVE 237 ML CAN PO SCH ×2 (10:10→21:00)
--- NOTE | 2018-04-20 14:19 | P.PN ---
Subjective Date of Service: 04/20/18 Chief Complaint: gastroenteritis Patient seen and examined at bedside with RN. Chart reviewed. This morning patient is still complaining of having some loose stool. Patient is a very cachectic-appearing and mild distress. ANC <100 today Review of Systems 10-point ROS is otherwise unremarkable Physical Examination - Vital Signs Temperature: 99 F Blood Pressure: 145/96 Pulse: 101 Respirations: 20 Pulse Ox (%): 96 - Physical Exam General: Alert, In no apparent distress HEENT: Atraumatic, PERRLA, EOMI Neck: Supple, JVD not distended Respiratory: Clear to auscultation bilaterally, Normal air movement Cardiovascular: Regular rate/rhythm, Normal S1 S2 Gastrointestinal: Normal bowel sounds, No tenderness Musculoskeletal: No tenderness Integumentary: No rashes Neurological: Normal speech, Normal tone, Normal affect Lymphatics: No axilla or inguinal lymphadenopathy - Studies Medications List Reviewed: Yes Assessment And Plan - Current Problems (Diagnosis) (1) Neutropenia Onset Date: 04/20/18 Current Visit: Yes Status: Acute Plan: Neutropenia with white blood cell count of 0.6 steadily declining. -patient's absolute neutrophil count today has been less than 90 -patient is at high risk for opportunistic infection along with some severe infection. -given the recent history of diarrhea and continued loose stool patient needs to be on a prophylactic antibiotics -patient will also need treatment with filgratrim till ANC > 1500 -oncology has been consulted. Recommendations appreciated at this time Qualifiers: Neutropenia type: secondary to cancer chemotherapy Qualified Code(s): D70.1 - Agranulocytosis secondary to cancer chemotherapy; T45.1X5A - Adverse effect of antineoplastic and immunosuppressive drugs, initial encounter (2) Gastroenteritis Onset Date: 04/18/18 Current Visit: Yes Status: Acute Plan: Patient with chemotherapy related gastroenteritis versus infectious gastroenteritis. -nausea and vomiting resolved today -continued to have loose stools at this time -continue IV fluids (3) Lung cancer Onset Date: 05/27/17 Current Visit: No Status: Chronic Qualifiers: Laterality: right Lung location: upper lobe of lung Qualified Code(s): C34.11 - Malignant neoplasm of upper lobe, right bronchus or lung (4) COPD (chronic obstructive pulmonary disease) Onset Date: 05/27/17 Current Visit: No Status: Chronic Qualifiers: COPD type: emphysema Emphysema type: unspecified Qualified Code(s): J43.9 - Emphysema, unspecified (5) History of CVA (cerebrovascular accident) Current Visit: No Status: Chronic (6) Hypertension Onset Date: 05/27/17 Current Visit: No Status: Chronic Qualifiers: Hypertension type: essential hypertension Qualified Code(s): I10 - Essential (primary) hypertension (7) Tobacco abuse Onset Date: 05/27/17 Current Visit: No Status: Chronic (8) GERD (gastroesophageal reflux disease) Onset Date: 05/27/17 Current Visit: No Status: Suspected Qualifiers: Esophagitis presence: esophagitis presence not specified Qualified Code(s) : K21.9 - Gastro-esophageal reflux disease without esophagitis - Plan Awaiting clinical improvement at this time. With absolute neutrophil count of less than 100 patient is at high risk for severe infection. Patient started on Levaquin 500 and was given filgrastim. Will repeat CBC tomorrow to monitor for any changes Discharge Plan: Home Plan to discharge in: 48 Hours - Code Status/Comfort Care Code Status Assessed: Yes Critical Care: No
--- NOTE | 2018-04-20 18:34 | CON ---
INFECTIOUS DISEASE CONSULT History Of Present Illness: The patient is a 63-year-old male, I was consulted for leukopenia and ne utropenia. The patient is currently being treated with the Levaquin. The patient came in initially with the gastroenteritis and diarrhea. The patient denies any headache, nausea, vomiting, chest pain , abdominal pain, fevers. Has significant history of lung cancer, tobacco use, COPD, stroke, hyperte nsion, foot surgery. Past Medical History: As per HPI. Social History: Tobacco positive, alcohol negative. Family History: Noncontributory. Medication: Levaquin. See [facility] for other medication. Allergies: NO KNOWN DRUG ALLERGIES. Review of Systems: A 10-point review was performed. Physical Examination: General: This is a 63-year-old male, lying in bed, not in any acute cardiopulmonary distress. Vital Signs: Temperature 99, pulse 101, respirations 18, blood pressure 145/96. HEENT: Unremarkable. Neck: Supple. Lungs: Basal crackles. Heart: S1, S2, regular. Abdomen: Soft, nontender. Bowel sounds positive. Extremities: No edema. Laboratory Data: Shows WBC 0.7, hemoglobin 10.3, platelets are 222. Chemistry shows sodium 137, pot assium 3.9, chloride 106, bicarb 25, BUN 10, creatinine 0.8, glucose 85, albumin is 2.6. Micro data; blood cultures, no growth in [address] chest shows moderate right pleural effusion, right mid nirali ng and right upper lobe chronic lung consolidation, appears unchanged. Assessment And Plan: A 63-year-old male with the significant history of lung cancer, coming in with the neutropenia, gastroenteritis, currently being treated with Levaquin. We will recommend cefepime and Flagyl at this time. Consider getting Neupogen for neutropenia. Continue antibiotic. Monitor w vanessa blood cell count. We will follow the patient as needed. Thank you, Dr. Reyez, for consult. MIRIAN/BRITTNEY Voice ID: [id number] Report ID: [id number]
[2018-04-20] MEDS: MELATONIN 3 MG TABLET PO SCH (21:00)
[2018-04-21] MEDS: NA CHLORIDE 0.9% 1,000 ML IV SCH ×3 (04:53→21:13)
[2018-04-21 05:17] LABS: BUN Blood Urea Nitrogen 9 mg/dL (7-18); Bicarbonate 27 mmol/L (21-32); Glucose Level 89 mg/dL (74-106); Magnesium 1.5 mg/dL (1.8-2.4); Potassium 3.8 mmol/L (3.5-5.1); Sodium Level 137 mmol/L (136-145)
[2018-04-21] MEDS ORDERED: Magnesium Sulfate 2gm IVPB 2 G/50 ML BAG IV ONE (05:33)
[2018-04-21] MEDS ORDERED: POTASSIUM 25 MEQ EFFERV TAB PO ONE (05:43)
[2018-04-21] MEDS: ENSURE ENLIVE 237 ML CAN PO SCH ×2 (09:40→19:51)
[2018-04-21] MEDS: levoFLOXacin 500 MG TAB PO SCH (09:41)
[2018-04-21] MEDS: TBO-FILGRASTIM 480 MCG/0.8 ML SYR SQ SCH (09:41)
[2018-04-21 11:00] LABS: Absolute Lymphocytes (CBC) 0.4 K/uL (0.7-4.9); Absolute Monocytes 0.7 K/uL (0.1-1.3); Absolute Neutrophil 0.1 K/uL (1.8-8.0); Basophils % 2.5 % (0-1.3); Eosinophils % 6.1 % (0-4.4); Hematocrit 31.6 % (39.6-49.0); Lymphocytes % 30.6 % (15.3-44.8); MCH 27.3 pg (27.0-35.0); MCV 79.9 fL (80-100); MPV 8.8 fL (7.6-11.3); Monocytes % 53.3 % (3.3-12.3); RBC Red Blood Cell Count 3.95 M/uL (4.33-5.43)
[2018-04-21 11:43] LABS: Platelet Estimate ADEQ; Urine White Blood Cell Casts OK
[2018-04-21 11:44] LABS: Anisocytosis 1+; Blood Morphology Comment NOTED (NOT SEEN); Poikilocytosis 1+
[2018-04-21] MEDS ORDERED: CEFEPIME 1 GM/VIAL IV SCH (12:00)
[2018-04-21] MEDS: METRONIDAZOLE 500mg IVPB 500 MG/100 ML BAG IV SCH ×2 (12:13→17:06)
[2018-04-21] MEDS ORDERED: HYDROCODONE/APAP 5/325 MG TAB PO PRN (12:41)
--- NOTE | 2018-04-21 12:41 | P.PN ---
Subjective Date of Service: 04/21/18 Chief Complaint: gastroenteritis Patient seen and examined at bedside with RN. Chart reviewed. This morning patient is still complaining of having some loose stool. Patient is a very cachectic-appearing and mild distress. ANC <100 today. During rounds patient was noted to have raw meat at bedside. Patient was advised not to consume any raw meat as this could be detrimental for the patient is disease process. Patient demonstrated understanding Review of Systems 10-point ROS is otherwise unremarkable Physical Examination - Vital Signs Temperature: 98.1 F Blood Pressure: 134/88 Pulse: 94 Respirations: 20 Pulse Ox (%): 96 - Physical Exam General: Alert, In no apparent distress HEENT: Atraumatic, PERRLA, EOMI Neck: Supple, JVD not distended Respiratory: Clear to auscultation bilaterally, Normal air movement Cardiovascular: Regular rate/rhythm, Normal S1 S2 Gastrointestinal: Normal bowel sounds, No tenderness Musculoskeletal: No tenderness Integumentary: No rashes Neurological: Normal speech, Normal tone, Normal affect Lymphatics: No axilla or inguinal lymphadenopathy - Studies Medications List Reviewed: Yes Assessment And Plan - Current Problems (Diagnosis) (1) Neutropenia Onset Date: 04/20/18 Current Visit: Yes Status: Acute Plan: Neutropenia with white blood cell count of 0.6 steadily declining. -patient's absolute neutrophil count today has been less than 90 -patient is at high risk for opportunistic infection along with some severe infection. -given the recent history of diarrhea and continued loose stool patient needs to be on a prophylactic antibiotics -patient will also need treatment with filgratrim till ANC > 1500 -oncology has been consulted. Recommendations appreciated at this time Qualifiers: Neutropenia type: secondary to cancer chemotherapy Qualified Code(s): D70.1 - Agranulocytosis secondary to cancer chemotherapy; T45.1X5A - Adverse effect of antineoplastic and immunosuppressive drugs, initial encounter (2) Gastroenteritis Onset Date: 04/18/18 Current Visit: Yes Status: Acute Plan: Patient with chemotherapy related gastroenteritis versus infectious gastroenteritis. -nausea and vomiting resolved today -continued to have loose stools at this time -started on PO Flagyl at this time -continue IV fluids (3) Lung cancer Onset Date: 05/27/17 Current Visit: No Status: Chronic Qualifiers: Laterality: right Lung location: upper lobe of lung Qualified Code(s): C34.11 - Malignant neoplasm of upper lobe, right bronchus or lung (4) COPD (chronic obstructive pulmonary disease) Onset Date: 05/27/17 Current Visit: No Status: Chronic Qualifiers: COPD type: emphysema Emphysema type: unspecified Qualified Code(s): J43.9 - Emphysema, unspecified (5) History of CVA (cerebrovascular accident) Current Visit: No Status: Chronic (6) Hypertension Onset Date: 05/27/17 Current Visit: No Status: Chronic Qualifiers: Hypertension type: essential hypertension Qualified Code(s): I10 - Essential (primary) hypertension (7) Tobacco abuse Onset Date: 05/27/17 Current Visit: No Status: Chronic (8) GERD (gastroesophageal reflux disease) Onset Date: 05/27/17 Current Visit: No Status: Suspected Qualifiers: Esophagitis presence: esophagitis presence not specified Qualified Code(s) : K21.9 - Gastro-esophageal reflux disease without esophagitis - Plan Awaiting clinical improvement at this time. With absolute neutrophil count of less than 100 patient is at high risk for severe infection. Patient was switched to IV cefepime with ID consult and recommendation And to continue with filgrastim. Will repeat CBC tomorrow to monitor for any changes Discharge Plan: Home Plan to discharge in: 48 Hours - Code Status/Comfort Care Code Status Assessed: Yes Critical Care: No
[2018-04-21] MEDS: CEFEPIME/SWI 1gm 1 GM/10 ML SYR IV SCH (13:18)
[2018-04-21] MEDS: PANTOPRAZOLE 40MG TABLET PO SCH (16:31)
[2018-04-21] MEDS: hydrOXYzine HCl 25 MG TAB PO SCH (16:31)
[2018-04-21] MEDS ORDERED: MAGNESIUM SULFATE 1 gm IVPB 1 GM/100 ML BAG IV ONE (18:00)
[2018-04-21] MEDS: MELATONIN 3 MG TABLET PO SCH (21:00)
[2018-04-21] MEDS: ZOLPIDEM TARTRATE 10 MG TABLET PO SCH (21:14)
[2018-04-21] MEDS: DOXEPIN HCL 25 MG CAP PO SCH (21:14)
[2018-04-22] MEDS: METRONIDAZOLE 500mg IVPB 500 MG/100 ML BAG IV SCH ×4 (00:14→17:21)
[2018-04-22] MEDS: hydrOXYzine HCl 25 MG TAB PO SCH ×3 (00:14→16:02)
[2018-04-22 05:14] LABS: Absolute Lymphocytes (CBC) 0.7 K/uL (0.7-4.9); Absolute Monocytes 1.7 K/uL (0.1-1.3); Absolute Neutrophil 0.7 K/uL (1.8-8.0); Basophils % 1.3 % (0-1.3); Eosinophils % 2.3 % (0-4.4); Hematocrit 29.9 % (39.6-49.0); MCH 27.9 pg (27.0-35.0); MCV 80.4 fL (80-100); MPV 8.5 fL (7.6-11.3); Monocytes % 52.1 % (3.3-12.3); RBC Red Blood Cell Count 3.72 M/uL (4.33-5.43)
[2018-04-22 05:25] LABS: BUN Blood Urea Nitrogen 8 mg/dL (7-18); Bicarbonate 25 mmol/L (21-32); Glucose Level 85 mg/dL (74-106); Potassium 3.8 mmol/L (3.5-5.1); Sodium Level 141 mmol/L (136-145)
[2018-04-22] MEDS ORDERED: POTASSIUM 25 MEQ EFFERV TAB PO ONE (05:48)
[2018-04-22 07:07] LABS: Blood Morphology Comment NOT SEEN (NOT SEEN); Platelet Estimate ADEQ
[2018-04-22] MEDS: PANTOPRAZOLE 40MG TABLET PO SCH ×2 (07:30→16:03)
[2018-04-22] MEDS: ENSURE ENLIVE 237 ML CAN PO SCH ×2 (09:00→21:00)
[2018-04-22] MEDS: CEFEPIME/SWI 1gm 1 GM/10 ML SYR IV SCH (09:27)
[2018-04-22] MEDS: TBO-FILGRASTIM 480 MCG/0.8 ML SYR SQ SCH (09:27)
[2018-04-22] MEDS: DOXEPIN HCL 25 MG CAP PO SCH ×2 (09:27→21:47)
[2018-04-22] MEDS: DEXAMETHASONE 4 MG TAB PO SCH (09:29)
[2018-04-22 09:35] LABS: Dohle Bodies PRESENT; Toxic Granulation PRESENT
[2018-04-22] MEDS: NA CHLORIDE 0.9% 1,000 ML IV SCH ×2 (11:30→19:41)
--- NOTE | 2018-04-22 14:45 | P.PN ---
Subjective Date of Service: 04/22/18 Chief Complaint: gastroenteritis Patient seen and examined at bedside with RN. Chart reviewed. This morning patient is still complaining of having some loose stool. Patient is a very cachectic-appearing and mild distress. ANC <1000 today. Review of Systems 10-point ROS is otherwise unremarkable Physical Examination - Vital Signs Temperature: 98.4 F Blood Pressure: 121/88 Pulse: 103 Respirations: 18 Pulse Ox (%): 94 - Physical Exam General: Alert, In no apparent distress HEENT: Atraumatic, PERRLA, EOMI Neck: Supple, JVD not distended Respiratory: Clear to auscultation bilaterally, Normal air movement Cardiovascular: Regular rate/rhythm, Normal S1 S2 Gastrointestinal: Normal bowel sounds, No tenderness Musculoskeletal: No tenderness Integumentary: No rashes Neurological: Normal speech, Normal tone, Normal affect Lymphatics: No axilla or inguinal lymphadenopathy - Studies Medications List Reviewed: Yes Assessment And Plan - Current Problems (Diagnosis) (1) Neutropenia Onset Date: 04/20/18 Current Visit: Yes Status: Acute Plan: Neutropenia with white blood cell count of 0.7 -ANC today < 1000 -patient is at high risk for opportunistic infection along with some severe infection. -given the recent history of diarrhea and continued loose stool patient needs to be on a prophylactic antibiotics -patient will also need treatment with filgratrim till ANC > 1500 -oncology has been consulted. Recommendations appreciated at this time Qualifiers: Neutropenia type: secondary to cancer chemotherapy Qualified Code(s): D70.1 - Agranulocytosis secondary to cancer chemotherapy; T45.1X5A - Adverse effect of antineoplastic and immunosuppressive drugs, initial encounter (2) Gastroenteritis Onset Date: 04/18/18 Current Visit: Yes Status: Acute Plan: Patient with chemotherapy related gastroenteritis versus infectious gastroenteritis. -nausea and vomiting resolved today -continued to have loose stools at this time -started on PO Flagyl at this time -continue IV fluids (3) COPD (chronic obstructive pulmonary disease) Onset Date: 05/27/17 Current Visit: No Status: Chronic Qualifiers: COPD type: emphysema Emphysema type: unspecified Qualified Code(s): J43.9 - Emphysema, unspecified (4) Lung cancer Onset Date: 05/27/17 Current Visit: No Status: Chronic Qualifiers: Laterality: right Lung location: upper lobe of lung Qualified Code(s): C34.11 - Malignant neoplasm of upper lobe, right bronchus or lung (5) History of CVA (cerebrovascular accident) Current Visit: No Status: Chronic (6) Hypertension Onset Date: 05/27/17 Current Visit: No Status: Chronic Qualifiers: Hypertension type: essential hypertension Qualified Code(s): I10 - Essential (primary) hypertension (7) Tobacco abuse Onset Date: 05/27/17 Current Visit: No Status: Chronic (8) GERD (gastroesophageal reflux disease) Onset Date: 05/27/17 Current Visit: No Status: Suspected Qualifiers: Esophagitis presence: esophagitis presence not specified Qualified Code(s) : K21.9 - Gastro-esophageal reflux disease without esophagitis - Plan Awaiting clinical improvement at this time. With absolute neutrophil count of less than 100 patient is at high risk for severe infection. Patient was switched to IV cefepime with ID consult and recommendation And to continue with filgrastim. Will repeat CBC tomorrow to monitor for any changes
[2018-04-22] MEDS: MELATONIN 3 MG TABLET PO SCH (21:47)
[2018-04-22] MEDS: ZOLPIDEM TARTRATE 10 MG TABLET PO SCH (21:47)
[2018-04-23] MEDS: METRONIDAZOLE 500mg IVPB 500 MG/100 ML BAG IV SCH ×3 (01:10→11:50)
[2018-04-23] MEDS: hydrOXYzine HCl 25 MG TAB PO SCH ×2 (01:10→09:01)
[2018-04-23] MEDS: NA CHLORIDE 0.9% 1,000 ML IV SCH (05:41)
[2018-04-23 06:48] LABS: BUN Blood Urea Nitrogen 14 mg/dL (7-18); Bicarbonate 24 mmol/L (21-32); Glucose Level 113 mg/dL (74-106); Potassium 3.9 mmol/L (3.5-5.1); Sodium Level 142 mmol/L (136-145)
[2018-04-23] MEDS: ENSURE ENLIVE 237 ML CAN PO SCH (09:00)
[2018-04-23] MEDS: DOXEPIN HCL 25 MG CAP PO SCH (09:01)
[2018-04-23] MEDS: DEXAMETHASONE 4 MG TAB PO SCH (09:01)
[2018-04-23] MEDS: PANTOPRAZOLE 40MG TABLET PO SCH (09:01)
[2018-04-23] MEDS: CEFEPIME/SWI 1gm 1 GM/10 ML SYR IV SCH (09:02)
[2018-04-23] MEDS: TBO-FILGRASTIM 480 MCG/0.8 ML SYR SQ SCH (10:37)
[2018-04-23 11:17] LABS: Absolute Lymphocytes (CBC) 0.7 K/uL (0.7-4.9); Absolute Monocytes 2.6 K/uL (0.1-1.3); Absolute Neutrophil 22.5 K/uL (1.8-8.0); Basophils % 0.2 % (0-1.3); Eosinophils % 0.1 % (0-4.4); Hematocrit 30.9 % (39.6-49.0); Lymphocytes % 2.6 % (15.3-44.8); MCV 80.5 fL (80-100); MPV 8.2 fL (7.6-11.3); Monocytes % 10.1 % (3.3-12.3); RBC Red Blood Cell Count 3.83 M/uL (4.33-5.43)
[2018-04-23 11:45] LABS: Dohle Bodies PRESENT; Platelet Estimate ADEQ; Toxic Granulation PRESENT
[2018-04-23 11:46] LABS: Anisocytosis 1+; Blood Morphology Comment NOTED (NOT SEEN); Polychromasia SLIGHT
[2018-04-23 12:43] VITALS: BP 139/93; TEMP 97.9
[2018-04-23 13:13] VITALS: O2SAT 94
--- NOTE | 2018-04-23 15:34 | P.DS ---
Admission Date: 04/19/18 Discharge Date: 04/23/18 Reason for Admission: gastroenteritis Consultations: Oncology - Problems (1) Neutropenia Onset Date: 04/20/18 Current Visit: Yes Status: Acute Qualifiers: Neutropenia type: secondary to cancer chemotherapy Qualified Code(s): D70.1 - Agranulocytosis secondary to cancer chemotherapy; T45.1X5A - Adverse effect of antineoplastic and immunosuppressive drugs, initial encounter (2) Gastroenteritis Onset Date: 04/18/18 Current Visit: Yes Status: Acute (3) COPD (chronic obstructive pulmonary disease) Onset Date: 05/27/17 Current Visit: No Status: Chronic Qualifiers: COPD type: emphysema Emphysema type: unspecified Qualified Code(s): J43.9 - Emphysema, unspecified (4) Lung cancer Onset Date: 05/27/17 Current Visit: No Status: Chronic Qualifiers: Laterality: right Lung location: upper lobe of lung Qualified Code(s): C34.11 - Malignant neoplasm of upper lobe, right bronchus or lung (5) History of CVA (cerebrovascular accident) Current Visit: No Status: Chronic (6) Hypertension Onset Date: 05/27/17 Current Visit: No Status: Chronic Qualifiers: Hypertension type: essential hypertension Qualified Code(s): I10 - Essential (primary) hypertension (7) Tobacco abuse Onset Date: 05/27/17 Current Visit: No Status: Chronic (8) GERD (gastroesophageal reflux disease) Onset Date: 05/27/17 Current Visit: No Status: Suspected Qualifiers: Esophagitis presence: esophagitis presence not specified Qualified Code(s) : K21.9 - Gastro-esophageal reflux disease without esophagitis Brief History of Present Illness: Mr Sommer stain 3-year-old gentleman with history of lung cancer on ongoing chemotherapy, last 1 was 2 weeks ago, who presents to ED complaining of nonspecific abdominal pain associated with nausea and vomiting. He stated that his symptoms has been going on for 3 days, he also had poor appetite. He was constipated on the 1st day when the symptoms start. He denied any fever or chills. In ER lab work remarkable for leukopenia 3.0 K, normal lactate and procalcitonin. CT chest shows chronic moderate right pleural effusion with also chronic right lower and middle lobe opacity without change. No acute abnormalities seen. CT abdomen and pelvis shows not acute abnormality either. Hospital Course: Overall during the hospital stay patient main stable Patient was initially admitted to the hospital for gastroenteritis with diarrhea nausea and vomiting. Patient was started on IV antibiotics here in the hospital. Patient's initial CBC revealed that his absolute neutrophil count was less than 90. At that time patient was placed on Neupogen and Levaquin for prophylactic coverage. Patient was also given Flagyl p.o.. Patient had marked resolution of his symptoms while here in the hospital. Patient's white count did elevate to 23,000. Patient then was discharged home under stable condition was asked to follow up with oncology in about 1-2 days post discharge. Patient demonstrated understanding and thus was discharged home under stable condition Vital Signs/Physical Exam: Temp Pulse Resp BP Pulse Ox 97.9 F 88 18 139/93 H 94 04/23/18 12:00 04/23/18 12:00 04/23/18 12:00 04/23/18 12:00 04/23/18 12:00 General: Alert, In no apparent distress HEENT: Atraumatic, PERRLA, EOMI Neck: Supple, JVD not distended Respiratory: Clear to auscultation bilaterally, Normal air movement Cardiovascular: Regular rate/rhythm, Normal S1 S2 Gastrointestinal: Normal bowel sounds, No tenderness Musculoskeletal: No tenderness Integumentary: No rashes Neurological: Normal speech, Normal tone, Normal affect Lymphatics: No axilla or inguinal lymphadenopathy Laboratory Data at Discharge: WBC 25.9 K/uL (4.3-10.9) H* D 04/23/18 11:10 Hgb 10.4 g/dL (13.6-17.9) L 04/23/18 11:10 Hct 30.9 % (39.6-49.0) L 04/23/18 11:10 Plt Count 355 K/uL (152-406) D 04/23/18 11:10 PT 12.8 SECONDS (9.5-12.5) H 04/17/18 15:45 INR 1.08 04/17/18 15:45 Sodium 142 mmol/L (136-145) 04/23/18 06:06 Potassium 3.9 mmol/L (3.5-5.1) 04/23/18 06:06 BUN 14 mg/dL (7-18) 04/23/18 06:06 Creatinine 0.90 mg/dL (0.55-1.3) 04/23/18 06:06 Glucose 113 mg/dL (74-106) H 04/23/18 06:06 Phosphorus 3.1 mg/dL (2.5-4.9) 04/20/18 05:29 Magnesium 2.0 mg/dL (1.8-2.4) 04/22/18 04:44 Total Bilirubin 0.5 mg/dL (0.2-1.0) 04/20/18 05:29 AST 33 U/L (15-37) 04/20/18 05:29 ALT 21 U/L (12-78) 04/20/18 05:29 Alkaline Phosphatase 52 U/L (45-117) 04/20/18 05:29 Lipase 229 U/L (73-393) 04/17/18 15:45 Home Medications: Codeine/APAP [Tylenol #3*] 1 tab PO Q4H PRN 04/20/18 Dexamethasone 4 mg PO DAILY 04/20/18 Doxepin HCl 25 mg PO BID 04/20/18 Fluticasone [Flonase 50MCG Nasal [place]*] 2 sprays IH DAILY 04/20/18 Hydrocodone/Acetaminophen [[place] 5-325 Tablet] 1 tab PO Q4H PRN 04/20/18 Ondansetron [Zofran (Odt)*] 4 mg PO Q4H PRN 04/20/18 Pantoprazole Sodium [Protonix] 40 mg PO BID 04/20/18 Phenylephrine HCl/Cod/Prometh [Phenergan Vc-Codeine Syrup] 10 ml PO Q4H PRN Tiotropium Br/Olodaterol HCl [Stiolto Respimat Inhal [place]] 2 puff IH DAILY Zolpidem Tartrate [Ambien*] 10 mg PO BEDTIME 04/20/18 hydrOXYzine HCl [Atarax] 25 mg PO Q8HR 04/20/18 predniSONE [Deltasone*] 10 mg PO DAILY 04/20/18 levoFLOXacin [Levaquin] 500 mg PO DAILY #10 tab 04/23/18 metroNIDAZOLE [Flagyl] 500 mg PO Q8H #30 tablet 04/23/18 New Medications: levoFLOXacin [Levaquin] 500 mg PO DAILY #10 tab metroNIDAZOLE [Flagyl] 500 mg PO Q8H #30 tablet Patient Discharge Instructions: Please f.u with PCP and Oncologist in 1 to 2 week post discharge. New medication. Levaquin 500mg daily. Flagyl 500mg q8h daily Diet: Regular Activity: Ad nicolle Followup: Marina Neff MD [ACTIVE - CAN ADMIT] - 1 Week (Call for appointment)
== END 2018-04-23 14:00 | disposition home or self-care (01) | DRG 392 ==
LOC: ER 13:58 → ERHOLD 17:06 → 2ND 19:33 → OBSVTOIN 04-19 14:42
PROVIDERS: ADMIT Family Medicine; ATTEND Family Medicine
DX: K52.9 Noninfective gastroenteritis and colitis, unspecified (principal); C34.11 Malignant neoplasm of upper lobe, right bronchus or lung; D70.1 Agranulocytosis secondary to cancer chemotherapy; T45.1X5A Adverse effect of antineoplastic and immunosuppressive drugs, initial encounter; J43.9 Emphysema, unspecified; I10 Essential (primary) hypertension; F17.200 Nicotine dependence, unspecified, uncomplicated; K21.9 Gastro-esophageal reflux disease without esophagitis; Z86.73 Personal history of transient ischemic attack (TIA), and cerebral infarction without residual deficits
CPT/HCPCS: 36415; 71045; 71250; 74176; 76377; 80048; 80053; 80076; 81001; 82550; 82962; 83605; 83690; 83735; 84100; 84145; 84484; 85025; 85610; 87040; 87493; 93005; 96360; 96361; 99285; G0378; J0692; J1446; J3475; J7030

== ENCOUNTER 2018-06-07 14:26 | Inpatient (IN) | payer MEDICAID ==
[2018-06-07] MEDS ORDERED: NA CHLORIDE 0.9% 1,000 ML ONE (15:01)
[2018-06-07 15:41] LABS: Absolute Lymphocytes (CBC) 0.4 K/uL (0.7-4.9); Absolute Monocytes 0.1 K/uL (0.1-1.3); Absolute Neutrophil 8.5 K/uL (1.8-8.0); Basophils % 0.3 % (0-1.3); Eosinophils % 1.4 % (0-4.4); Hematocrit 29.8 % (39.6-49.0); MPV 8.7 fL (7.6-11.3); Monocytes % 1.3 % (3.3-12.3); RBC Red Blood Cell Count 3.68 M/uL (4.33-5.43)
[2018-06-07 15:57] LABS: BUN Blood Urea Nitrogen 14 mg/dL (7-18); Bicarbonate 28 mmol/L (21-32); Creatine Phosphokinase 77 U/L (39-308); Glucose Level 110 mg/dL (74-106); Potassium 4.2 mmol/L (3.5-5.1); Sodium Level 136 mmol/L (136-145); Troponin (Emerg Dept Use Only) < 0.02 ng/mL (0.0-0.045)
--- NOTE | 2018-06-07 17:13 | RAD REPORT ---
EXAM DESCRIPTION: CT - Chest For Pe Angio - 06/07/2018 4:52 pm CLINICAL HISTORY: Cough, shortness of breath, lung cancer COMPARISON: April 2018 PET scan TECHNIQUE: Dynamically enhanced axial 3 mm thick images of the chest were obtained during administra tion of <100> mL Isovue 370 IV contrast. Coronal and oblique reconstruction images were generated and reviewed. Exam utilizes a protocol for optimal evaluation of pulmonary arterial tree. Maximum intensity projections 3D imaging was utilized All CT scans are performed using dose optimization technique as appropriate and may include automated exposure control or mA/KV adjustment according to patient size. FINDINGS: A pulmonary embolus is not seen. A thoracic aortic aneurysm is not noted. A very large right pleural effusion has increased in size since the prior exam Right lung opacities represent a combination of neoplasm and atelectasis. Small left pleural effusion. Left lung is clear IMPRESSION: Negative for a pulmonary embolism. Very large right pleural effusion
--- NOTE | 2018-06-07 17:14 | RAD REPORT ---
EXAM DESCRIPTION: Andreia Single View06/07/2018 3:12 pm CLINICAL HISTORY: Shortness of breath COMPARISON: April 2018 FINDINGS: Very large right pleural effusion has increased in size. Right lung opacities represent a combination of atelectasis and mass Left lung appears clear of acute infiltrate. Central venous catheter has its tip in the superior vena cava
--- NOTE | 2018-06-07 17:41 | ER ---
Nurse's Notes [facility] Name: Danny Sommer Age: 63 yrs Sex: Male : 1955 Arrival Date: 06/07/2018 Time: 14:27 Bed 7 Private MD: Dominic Valdez E Diagnosis: Pleural effusion, not elsewhere classified;Dyspnea, unspecified;Dehydration Presentation: 06/07 14:30 Presenting complaint: Patient states: im not breathing right, very short of breath; it hj started about a week ago; reports cough, hx of lung cancer; denies fever and chills;. Transition of care: patient was not received from another setting of care. Onset of symptoms was June 07, 2018. Risk Assessment: Do you want to hurt yourself or someone else? Patient reports no desire to harm self or others. Initial Sepsis Screen: Does the patient meet any 2 criteria? No. Patient's initial sepsis screen is negative. Does the patient have a suspected source of infection? No. Patient's initial sepsis screen is negative. Care prior to arrival: None. 14:30 Method Of Arrival: Ambulatory 14:30 Acuity: FUENTES 3 hj Triage Assessment: 14:32 General: Appears in no apparent distress. uncomfortable, Behavior is calm, cooperative, hj appropriate for age. Pain: Denies pain. Respiratory: Reports shortness of breath Onset: The symptoms/episode began/occurred last week, the patient has moderate shortness of breath. Historical: - Allergies: 14:32 NKDA; hj - PMHx: 14:32 CVA; Hypertension; Lung Cancer; hj - PSHx: 14:32 None; hj - Immunization history:: Adult Immunizations up to date. - Social history:: Smoking status: Patient/guardian denies using tobacco, Patient/guardian denies using alcohol. - Ebola Screening: : Patient negative for fever greater than or equal to 101.5 degrees Fahrenheit, and additional compatible Ebola Virus Disease symptoms Patient denies exposure to infectious person Patient denies travel to an Ebola-affected area in the 21 days before illness onset. - Family history:: not pertinent. - Hospitalizations: : No recent hospitalization is reported. Screenin:33 Abuse screen: Denies threats or abuse. Denies injuries from another. Nutritional hj screening: No deficits noted. Tuberculosis screening: No symptoms or risk factors identified. Fall Risk None identified. Assessment: 14:33 Cardiovascular: Rhythm is. Respiratory: Airway is patent Respiratory effort is even, hj unlabored, Respiratory pattern is regular, symmetrical, 14:50 General: Appears in no apparent distress. uncomfortable, slender, Behavior is calm, sv cooperative, appropriate for age. Pain: Denies pain. Neuro: Level of Consciousness is awake, alert, obeys commands, Oriented to person, place, time, situation, Moves all extremities. Full function. Cardiovascular: Heart tones S1 S2 present Capillary refill is > 3 seconds in bilateral fingers Patient's skin is warm and dry. Pulses are 2+ in right radial artery and left radial artery Rhythm is sinus tachycardia. Respiratory: Airway is patent Respiratory effort is even, shallow, Respiratory pattern is symmetrical, tachypnea Breath sounds are diminished in left posterior lower lobe, right posterior middle lobe and right posterior lower lobe. EENT: Oral mucosa is dry. Derm: Skin is dry, Skin is normal. 15:34 Reassessment: Brea [phone]. sv 15:50 Reassessment: Patient appears in no apparent distress at this time. No changes from sv previously documented assessment. Patient and/or family updated on plan of care and expected duration. Pain level reassessed. Patient is alert, oriented x 3, equal unlabored respirations, skin warm/dry/pink. 16:58 Reassessment: Patient appears in no apparent distress at this time. No changes from sv previously documented assessment. Patient and/or family updated on plan of care and expected duration. Pain level reassessed. Patient is alert, oriented x 3, equal unlabored respirations, skin warm/dry/pink. 18:09 Reassessment: Patient appears in no apparent distress at this time. No changes from sv previously documented assessment. Patient and/or family updated on plan of care and expected duration. Pain level reassessed. Patient is alert, oriented x 3, equal unlabored respirations, skin warm/dry/pink. Vital Signs: 14:33 BP 101 / 68; Pulse 120; Resp 20; Temp 100.3(O); Pulse Ox 100% on R/A; Weight 68.04 kg; hj Height 6 ft. 1 in. (185.42 cm); Pain 0/10; 15:25 BP 111 / 83; Pulse 105 MON; Resp 19; Pulse Ox 100% on 2 lpm NC; sv 16:08 BP 114 / 85; Pulse 100; Resp 28; Pulse Ox 100% on 2 lpm NC; sv 16:53 BP 134 / 91; Pulse 101; Resp 27; Temp 98.7(O); Pulse Ox 100% 2 lpm ; sv 17:49 BP 130 / 83; Pulse 103; Resp 23; Pulse Ox 100% on 2 lpm NC; sv 14:33 Body Mass Index 19.79 (68.04 kg, 185.42 cm) hj 15:25 Sinus tachycardia sv ED Course: 14:27 Patient arrived in ED. mr 14:28 Dominic Valdez MD is Private Physician. mr 14:32 Triage completed. hj 14:33 Arm band placed on right wrist. hj 14:33 Patient has correct armband on for positive identification. Placed in gown. Bed in low hj position. Call light in reach. Side rails up X 1. Adult w/ patient. 14:39 Yusef Moreno MD is Attending Physician. rn 14:40 Kathy Badillo RN is Primary Nurse. sv 14:40 Awaiting ED provider evaluation. sv 14:55 X-ray(s) taken. sv 15:10 Initial lab(s) drawn, by me, sent to lab. First set of blood cultures drawn by me. sv Accessed Port-a-Cath. Blood collected. using accessed w/ # 20 Early needle, ,sterile technique, per hospital protocol. Clean \T\ dry. Dressing intact. Good blood return. Flushes easily. 15:13 Chest Single View XRAY In Process Unspecified. EDMS 15:25 Second set of blood cultures drawn by me. sv 15:42 EKG done, by orthotic finish grinding technician. reviewed by Yusef Moreno MD. sm3 16:52 Radiology exam delayed due to lab results not completed at this time. (BUN/Creatinine). nj 16:53 Awaiting radiology results. Awaiting re-evaluation by ER provider. sv 16:53 CT Chest For PE Angio In Process Unspecified. EDMS 16:57 CT completed. Patient tolerated procedure well. Patient moved back from CT. nj 16:58 IV is patent, is intact, with fluids infusing freely, Flushed right port-a-cath with 5 sv ml normal saline. 17:40 Jayy Patel MD is Hospitalizing Provider. rn 18:07 No provider procedures requiring assistance completed. Patient admitted, IV remains in sv place. intact. Administered Medications: 15:33 Drug: NS 0.9% 1000 ml Route: IV; Rate: 1000 ml; Site: Port-a-cath; sv 16:30 Follow up: Response: No adverse reaction; IV Status: Completed infusion; IV Intake: sv 1000ml 17:18 CANCELLED (Duplicate Order): Metoprolol TARTRATE (Lopressor) 50 mg PO once furnace mechanic: 16:30 IV: 1000ml; Total: 1000ml. sv Outcome: 17:41 Decision to Hospitalize by Provider. rn 18:09 Admitted to Tele accompanied by tech, via stretcher, room 204, with oxygen, with chart, sv Report called to Dav REINOSO 18:09 Condition: stable 18:09 Instructed on the need for admit. 18:21 Patient left the ED. sv Signatures: Dispatcher [employer] EDKathy Adams, ARLETH Mckinney, Yusef Mesa MD MD rn Joaquin, Henry, RN RN hj Jordan, Saida Blackwell 3 Corrections: (The following items were deleted from the chart) 14:36 14:33 Pulse 115bpm; Resp 20bpm; Pulse Ox 100% RA; Temp 100.3F Oral; 68.04 kg; Height 6 hj ft. 1 in.; BMI: 19.7; Pain 0/10; hj 14:36 14:33 BP 101 / 68; Pulse 115bpm; Resp 20bpm; Pulse Ox 100% RA; Temp 100.3F Oral; 68.04 hj kg; Height 6 ft. 1 in.; BMI: 19.7; Pain 0/10; hj 16:57 16:53 BP 134 / 91; Pulse 101bpm; Resp 27bpm; Pulse Ox 100% 2 lpm; sv sv 16:58 16:58 IV is patent, is intact, with fluids infusing freely, sv sv
--- NOTE | 2018-06-07 17:42 | EDPHYS ---
Physician Documentation [facility] Name: Danny Sommer Age: 63 yrs Sex: Male : 1955 Arrival Date: 06/07/2018 Time: 14:27 Bed 7 Private MD: Dominic Valdez E ED Physician Yusef Moreno HPI: 06/07 15:45 This 63 yrs old Black Male presents to ER via Ambulatory with complaints of Breathing rn Difficulty. 15:45 The patient has shortness of breath at rest. Onset: The symptoms/episode began/occurred rn 2 day(s) ago. Duration: The symptoms are continuous. The patient's shortness of breath is aggravated by exertion, light activity, talking, walking. Severity of symptoms: At their worst the symptoms were moderate in the emergency department the symptoms are unchanged. The patient has experienced similar episodes in the past. The patient has not recently seen a physician. Reports worsening sob and productive cough, + generalized weakness, difficulty walking and not eating/drinking due to weakness.. Historical: - Allergies: 14:32 NKDA; hj - PMHx: 14:32 CVA; Hypertension; Lung Cancer; hj - PSHx: 14:32 None; hj - Immunization history:: Adult Immunizations up to date. - Social history:: Smoking status: Patient/guardian denies using tobacco, Patient/guardian denies using alcohol. - Ebola Screening: : Patient negative for fever greater than or equal to 101.5 degrees Fahrenheit, and additional compatible Ebola Virus Disease symptoms Patient denies exposure to infectious person Patient denies travel to an Ebola-affected area in the 21 days before illness onset. - Family history:: not pertinent. - Hospitalizations: : No recent hospitalization is reported. ROS: 15:45 Constitutional: Negative for fever, chills, and weight loss, Eyes: Negative for injury, rn pain, redness, and discharge, Neck: Negative for injury, pain, and swelling, Cardiovascular: Negative for chest pain, palpitations, and edema, Respiratory: + for sob and cough Abdomen/GI: Negative for abdominal pain, nausea, vomiting, diarrhea, and constipation, MS/Extremity: Negative for injury and deformity, Skin: Negative for injury, rash, and discoloration, Neuro: Negative for headache, numbness, tingling, and seizure. Exam: 15:45 Constitutional: Thin male, no acute distress Head/Face: Normocephalic, atraumatic. rn Eyes: Sunken eyes ENT: dry MM, no stridor Cardiovascular: tachycardic, regular, no murmur Respiratory: Mild tachypnea with diminished breath sounds bilateral bases Abdomen/GI: soft, non-tender Skin: Warm, dry, no evidence of cellulitis. MS/ Extremity: Pulses equal, no cyanosis. Neurovascular intact. Full, normal range of motion. Equal circumference. Neuro: Awake and alert, GCS 15, oriented to person, place, time, and situation. Cranial nerves II-XII grossly intact. Motor strength 4/5 in all extremities. Sensory grossly intact. Vital Signs: 14:33 BP 101 / 68; Pulse 120; Resp 20; Temp 100.3(O); Pulse Ox 100% on R/A; Weight 68.04 kg; hj Height 6 ft. 1 in. (185.42 cm); Pain 0/10; 15:25 BP 111 / 83; Pulse 105 MON; Resp 19; Pulse Ox 100% on 2 lpm NC; sv 16:08 BP 114 / 85; Pulse 100; Resp 28; Pulse Ox 100% on 2 lpm NC; sv 16:53 BP 134 / 91; Pulse 101; Resp 27; Temp 98.7(O); Pulse Ox 100% 2 lpm ; sv 17:49 BP 130 / 83; Pulse 103; Resp 23; Pulse Ox 100% on 2 lpm NC; sv 14:33 Body Mass Index 19.79 (68.04 kg, 185.42 cm) hj 15:25 Sinus tachycardia sv MDM: 14:39 Patient medically screened. rn 17:39 Differential diagnosis: Anemia Bronchitis Chronic Obstructive Pulmonary Disease rn Myocardial Infarction pneumonia, Pneumothorax pulmonary edema, pleural effusion. Data reviewed: vital signs, nurses notes, lab test result(s), EKG, radiologic studies, CT scan, plain films, and as a result, I will admit patient. Counseling: I had a detailed discussion with the patient and/or guardian regarding: the historical points, exam findings, and any diagnostic results supporting the discharge/admit diagnosis, lab results, radiology results, the need for further work-up and treatment in the hospital. Response to treatment: the patient's symptoms have mildly improved after treatment, and as a result, I will admit patient. Admission orders: after a detailed discussion of the patient's condition and case, the admit orders are written by me. ED course: Contacted Dr. Patel for admission, he contacted Dr. Auguste for consultation regarding pleurocentesis, will see and eval patient, will admit. . 06/07 14:50 Order name: Basic Metabolic Panel; Complete Time: 16:05 rn 06/07 14:50 Order name: Blood Culture Adult (2) rn 06/07 14:50 Order name: CBC with Diff rn 06/07 14:50 Order name: CPK; Complete Time: 16:05 rn 06/07 14:50 Order name: Lactate; Complete Time: 16:05 rn 06/07 14:50 Order name: Procalcitonin; Complete Time: 16:25 rn 06/07 14:50 Order name: Troponin (emerg Dept Use Only); Complete Time: 16:05 rn 06/07 14:50 Order name: Urine Microscopic Only rn 06/07 14:50 Order name: Chest Single View XRAY; Complete Time: 17:17 rn 06/07 14:50 Order name: Flu; Complete Time: 16:05 rn 06/07 17:48 Order name: Basic Metabolic Panel EDMS 06/07 17:48 Order name: Basic Metabolic Panel EDMS 06/07 17:48 Order name: CBC with Automated Diff EDMS 06/07 17:48 Order name: CBC with Automated Diff EDMS 06/07 14:50 Order name: Cardiac monitoring; Complete Time: 15:23 rn 06/07 14:50 Order name: EKG - Nurse/Tech; Complete Time: 15:35 rn 06/07 14:50 Order name: IV Saline Lock - Large Bore; Complete Time: 15:23 rn 06/07 14:50 Order name: Labs collected and sent; Complete Time: 15:23 rn 06/07 14:50 Order name: O2 Per Protocol; Complete Time: 15:23 rn 06/07 14:50 Order name: O2 Sat Monitoring; Complete Time: 15:24 rn 06/07 16:06 Order name: CT Chest For PE Angio; Complete Time: 17:17 rn 06/07 16:13 Order name: EKG Electrocardiogram; Complete Time: 16:13 EDMS 06/07 17:48 Order name: CONS Physician Consult EDMS Administered Medications: 15:33 Drug: NS 0.9% 1000 ml Route: IV; Rate: 1000 ml; Site: Port-a-cath; sv 16:30 Follow up: Response: No adverse reaction; IV Status: Completed infusion; IV Intake: sv 1000ml 17:18 CANCELLED (Duplicate Order): Metoprolol TARTRATE (Lopressor) 50 mg PO once rn Disposition: 06/07/18 17:41 Hospitalization ordered by Jayy Patel for Inpatient Admission. Preliminary diagnosis are Pleural effusion, not elsewhere classified, Dyspnea, unspecified, Dehydration. - Bed requested for Telemetry/MedSurg (Inpatient). - Status is Inpatient Admission. sv - Condition is Stable. - Problem is new. - Symptoms are unchanged. UTI on Admission? No Signatures: Dispatcher [employer] EDKathy Adams, RN RN Erika Yeager RN RN Yusef [place] MD MD rn Joaquin, Henry RN RN Corrections: (The following items were deleted from the chart) 17:02 14:50 Accucheck ordered. rn sv 17:18 17:18 Metoprolol TARTRATE (Lopressor) 50 mg PO once ordered. rn rn 17:56 17:41 Hospitalization Ordered by Jayy Patel MD for Inpatient Admission. Preliminary dw diagnosis is Pleural effusion, not elsewhere classified; Dyspnea, unspecified; Dehydration. Bed requested for Telemetry/MedSurg (Inpatient). Status is Inpatient Admission. Condition is Stable. Problem is new. Symptoms are unchanged. UTI on Admission? No. rn 18:21 17:56 06/07/2018 17:41 Hospitalization Ordered by Jayy Patel MD for Inpatient sv Admission. Preliminary diagnosis is Pleural effusion, not elsewhere classified; Dyspnea, unspecified; Dehydration. Bed requested for Telemetry/MedSurg (Inpatient). Status is Inpatient Admission. Condition is Stable. Problem is new. Symptoms are unchanged. UTI on Admission? No. dw
[2018-06-07] MEDS ORDERED: IPRATROPIUM BROM 0.5MG/2.5ML NEB PRN (17:45)
[2018-06-07] MEDS ORDERED: ACETAMINOPHEN 500 MG TAB PO PRN (17:45)
[2018-06-07] MEDS ORDERED: ONDANSETRON 4 MG/2 ML VIAL IV PRN (17:45)
[2018-06-07] MEDS ORDERED: ALBUTEROL 2.5 MG/3 ML NEB SOL NEB PRN (17:45)
[2018-06-07] MEDS: NA CHLORIDE 0.9% 1,000 ML IV SCH (19:07)
[2018-06-07] MEDS ORDERED: HYDROCODONE/APAP 10/325 TAB PO PRN (19:45)
[2018-06-07] MEDS ORDERED: HYDROMORPHONE HCL 1 MG/ML INJ IV PRN (19:45)
[2018-06-07 21:59] LABS: Anisocytosis 2+; Blood Morphology Comment NOTED (NOT SEEN); Macrocytosis 2+; Platelet Estimate INCR
--- NOTE | 2018-06-07 22:55 | EKG ---
Test Date: 2018-06-07 Test Time: 15:35:45 Brick Pitcher: JENNIFER MEASUREMENT RESULTS: Intervals: Rate: 100 AL: 136 QRSD: 80 QT: 342 QTc: 441 [place]: P: 68 AL: 136 QRS: 17 T: 69 INTERPRETIVE STATEMENTS: Normal sinus rhythm Septal infarct, age undetermined Abnormal ECG Compared to ECG 04/17/2018 15:14:14 Myocardial infarct finding now present Sinus tachycardia no longer present Left-axis deviation no longer present Electronically Signed On 06-07-18 22:54:06 ORTHOPEDIC TECHNICIAN by Syed Barreto
[2018-06-08] MEDS: guaiFENesin 100 MG/5 ML UCUP PO PRN ×2 (01:01→15:45)
[2018-06-08] MEDS: NA CHLORIDE 0.9% 1,000 ML IV SCH (03:24)
[2018-06-08 06:20] LABS: Absolute Lymphocytes (CBC) 0.4 K/uL (0.7-4.9); Absolute Monocytes 0.2 K/uL (0.1-1.3); Basophils % 1.3 % (0-1.3); Eosinophils % 2.1 % (0-4.4); Hematocrit 26.5 % (39.6-49.0); Lymphocytes % 7.4 % (15.3-44.8); MPV 8.6 fL (7.6-11.3); Monocytes % 2.6 % (3.3-12.3); RBC Red Blood Cell Count 3.26 M/uL (4.33-5.43)
[2018-06-08 06:33] LABS: BUN Blood Urea Nitrogen 11 mg/dL (7-18); Bicarbonate 26 mmol/L (21-32); Glucose Level 92 mg/dL (74-106); Potassium 4.4 mmol/L (3.5-5.1); Sodium Level 139 mmol/L (136-145)
--- NOTE | 2018-06-08 08:40 | P.CNS ---
Date of Consult: 06/08/18 Reason for Consult: Shortness of breath history of lung cancer Chief Complaint: Shortness of breath pleural effusion History of Present Illness: Patient is 63 years of age with a history of lung cancer getting chemotherapy as been having progressive shortness of breath for the past week eyes any cough sputum hemoptysis fever or chills he has progression of his opacification on the right side according to radiologist he does have a significant effusion on the right side in addition to mediastinal shift and possible intestinal pleural effusion a progression of his lung cancer Allergies No Known Drug Allergies Allergy (Verified 04/17/18 20:14) Unknown Home Medications: Hydrocodone/Acetaminophen [[place] 5-325 Tablet] 1 tab PO Q4H PRN 04/20/18 Phenylephrine HCl/Cod/Prometh [Phenergan Vc-Codeine Syrup] 10 ml PO Q4H PRN Tiotropium Br/Olodaterol HCl [Stiolto Respimat Inhal [place]] 2 puff IH DAILY Suvorexant [Belsomra] 10 mg PO BEDTIME 06/07/18 - Past Medical/Surgical History Diabetic: No -: HTN -: Lung cancer -: Tobacco abuse -: COPD -: History CVA -: Foot surgery -: Surgery to the salivary gland -: Hemorrhoid surgery Psychosocial/ Personal History: The patient lives by himself. He is single. He has 5 children. - Family History Sister Medical History: Hypertension Mother Medical History: Cancer Father History Unknown: Yes - Social History Smoking Status: Current every day smoker Alcohol use: No CD- Drugs: No Caffeine use: Yes Place of Residence: Home Review of Systems General: Weakness, Malaise Respiratory: Cough, Shortness of Breath Neurological: Weakness Physical Examination Temp Pulse Resp BP Pulse Ox 98.2 F 105 H 17 110/71 94 06/08/18 04:00 06/08/18 04:00 06/08/18 04:00 06/08/18 04:00 06/08/18 04:00 General: Alert, Moderate distress HEENT: Atraumatic Neck: Supple Respiratory: Diminished (Markedly diminished air entry on the right side with tracheal deviation to the right) Cardiovascular: No edema, Regular rate/rhythm Gastrointestinal: Normal bowel sounds, Soft and benign Laboratory Data (last 24 hrs) 06/07/18 15:10: WBC 9.2, Hgb 10.0 L, Hct 29.8 L, Plt Count 498 H 06/07/18 15:10: Sodium 136, Potassium 4.2, BUN 14, Creatinine 0.82, Glucose 110 H - Problems (1) Lung cancer Onset Date: 05/27/17 Current Visit: No Status: Chronic Plan: Patient is 63 years of age with I suspect terminal lung cancer he has been receiving some chemotherapy admitted with worsening shortness of breath no evidence of pulmonary embolism he has an effusion on the right side tracheal deviation to the right with possible progression of his lung can in the mediastinum he has mild and effusion or progression of his cancer chemistries reviewed is mildly anemic due to volume loss on the right side thoracentesis would be contraindicated at this time I suggest referral to hospice care comfort measures and oncology consultation Qualifiers: Laterality: right
[2018-06-08] MEDS ORDERED: TIOTROPIUM BR IH SCH (09:00)
[2018-06-08] MEDS ORDERED: OLODATEROL HCL IH SCH (09:00)
[2018-06-08] MEDS: ARFORMOTEROL TARTRATE 15 MCG/2 ML VIAL.NEB NEB SCH ×2 (09:11→20:05)
[2018-06-08 09:23] LABS: Anisocytosis 1+; Blood Morphology Comment NOTED (NOT SEEN)
[2018-06-08] MEDS: METHYLPREDNISOLONE 40 MG INJ IV SCH ×2 (09:26→17:12)
[2018-06-08 09:36] LABS: Platelet Estimate INCR
--- NOTE | 2018-06-08 09:36 | P.HP ---
Certification for Inpatient Patient admitted to: Inpatient With expected LOS: >2 Midnights Patient will require the following post-hospital care: Hospice Practitioner: I am a practitioner with admitting privileges, knowledge of patient current condition, hospital course, and medical plan of care. Services: Services provided to patient in accordance with Admission requirements found in Title 42 Section 412.3 of the Code of Federal Regulations Patient History Date of Service: 06/08/18 Primary Care Provider: Amanda Reason for admission: Shortness of breath pleural effusion History of Present Illness: Patient of mine with a history of stage 3 adenocarcinoma. He has been getting progressively more short of breath. The patient came to the ER. He was found to have an enlargement of a right pleural effusion. The patient has this in the past. However has enlarged. He has some mediastinal effusion. The patient has some tracheal deviation to the effusion. The patient was seen this morning by Dr. Singh. Who recommended hospice Allergies No Known Drug Allergies Allergy (Verified 04/17/18 20:14) Unknown Home Medications: Hydrocodone/Acetaminophen [[place] 5-325 Tablet] 1 tab PO Q4H PRN 04/20/18 Phenylephrine HCl/Cod/Prometh [Phenergan Vc-Codeine Syrup] 10 ml PO Q4H PRN Tiotropium Br/Olodaterol HCl [Stiolto Respimat Inhal [place]] 2 puff IH DAILY Suvorexant [Belsomra] 10 mg PO BEDTIME 06/07/18 - Past Medical/Surgical History Has patient received pneumonia vaccine in the past: No Diabetic: No -: HTN -: Lung cancer -: Tobacco abuse -: COPD -: History CVA -: Foot surgery -: Surgery to the salivary gland -: Hemorrhoid surgery Psychosocial/ Personal History: The patient lives by himself. He is single. He has 5 children. - Family History Sister -: Hypertension Mother -: Cancer Father History Unknown: Yes - Social History Smoking Status: Former smoker Alcohol use: No CD- Drugs: No Caffeine use: Yes Place of Residence: Home Review of Systems 10-point ROS is otherwise unremarkable General: Weakness, Malaise Respiratory: Shortness of Breath Physical Examination - Vital Signs Temperature: 98.2 F Blood Pressure: 110/71 Pulse: 105 Respirations: 17 Pulse Ox (%): 94 - Physical Exam General: Alert, In no apparent distress HEENT: Atraumatic, PERRLA, Mucous membr. moist/pink, EOMI, Sclerae nonicteric Neck: Supple, 2+ carotid pulse no bruit, No LAD, Without JVD or thyroid abnormality Respiratory: Diminished, Crackles/rales Cardiovascular: Regular rate/rhythm, Normal S1 S2 Gastrointestinal: Normal bowel sounds, No tenderness Musculoskeletal: No tenderness Integumentary: No rashes Neurological: Normal gait, Normal speech, Normal strength at 5/5 x4 extr, Normal tone, Normal affect Lymphatics: No axilla or inguinal lymphadenopathy - Studies Laboratory Data (last 24 hrs) 06/07/18 15:10: WBC 9.2, Hgb 10.0 L, Hct 29.8 L, Plt Count 498 H 06/07/18 15:10: Sodium 136, Potassium 4.2, BUN 14, Creatinine 0.82, Glucose 110 H Microbiology Data (last 24 hrs): 06/07/18 15:20 Nasopharnyx Influenza Type A Antigen Screen - Final 06/07/18 15:20 Nasopharnyx Influenza Type B Antigen Screen - Final Assessment and Plan - Problems (Diagnosis) (1) End of life care Current Visit: Yes Status: Acute Plan: Patient most likely needs hospice. Will have him seen by Dr. Owens. If she agrees. Will consult hospice (2) Lung cancer Onset Date: 05/27/17 Current Visit: No Status: Chronic Plan: Has been seen by Dr. Singh. Will await Dr. Shah consult Qualifiers: Laterality: right Discharge Plan: Other Plan to discharge in: 48 Hours - Advance Directives Does patient have a Living Will: No Does patient have a Durable POA for Healthcare: Yes - Code Status/Comfort Care Code Status Assessed: No Physician Review: Patient Assessed, Agree with Above Assessment and Plan Critical Care: No Time Spent Managing Pts Care (In Minutes): 60
[2018-06-08] MEDS: IPRATROPIUM BROM 0.5MG/2.5ML NEB SCH ×2 (14:11→20:05)
[2018-06-08 18:10] VITALS: BMI 17.9
[2018-06-08] MEDS: BUPROPION HCL XL 150 MG TAB PO SCH (18:22)
[2018-06-08] MEDS ORDERED: clonazePAM 0.5 MG TAB PO PRN (19:43)
[2018-06-08] MEDS: ZOLPIDEM TARTRATE 5 MG TABLET PO PRN (20:35)
[2018-06-08] MEDS ORDERED: SUVOREXANT 10 MG PO SCH (21:00)
--- NOTE | 2018-06-08 23:41 | P.PN ---
Date of Service: 06/08/18 (Oncology) Pt seen today at 4pm. Patient's family at bedside. Mr Sommer is known to me from clinic for metastatic lung cancer. He was initially diagnosed with Lung adenicarcinoma in Feb 2014. He has received chemotherapy and radiation when deemed not a surgical candidate. He progressed to have metastatic disease in Apr 2015 and was started on immunotherapy with keytruda in May 2015 which he received for atleast 2 years with reasonable disease status. Post keyruda he was closely monitored and recently started on 3rd line chemotherapy with Taxotere on disease progression on PET scan. Recent PET scan in Apr 2018 did show mild improvement in the size and avidity of the lung mass. His PFS has been gradually deteriorating, mainly fatigue, generalized weakness. He is now admitted with worsening SOB. CT scans show increase in the pleural effusion, ?mediastinal extension of the effusion or ? mass. He has been evaluated by pulmonary and apparently not suitable for thoracentesis. When seen today he was in mild respiratory distress on O2 by nasal cannula We had extensive conversation about current disease status and progression with worsening pleural effusion. Treatment options are limited at this time. I had a detailed discussion about the imaging with Dr Auguste and Dr Burgos as well. Discussed about best supportive care with hospice placement. Pt is reluctant at this time though family seem to understand the situation. He wishes to have a second opinion.
[2018-06-09] MEDS: METHYLPREDNISOLONE 40 MG INJ IV SCH ×3 (00:46→17:02)
[2018-06-09] MEDS: IPRATROPIUM BROM 0.5MG/2.5ML NEB SCH ×4 (01:50→19:50)
[2018-06-09] MEDS: ARFORMOTEROL TARTRATE 15 MCG/2 ML VIAL.NEB NEB SCH ×2 (07:25→19:50)
[2018-06-09] MEDS: BUPROPION HCL XL 150 MG TAB PO SCH (09:50)
--- NOTE | 2018-06-09 11:01 | P.PN ---
Subjective Date of Service: 06/09/18 Primary Care Provider: Amanda Chief Complaint: Shortness of breath pleural effusion Subjective: No new changes Review of Systems General: Weakness Respiratory: SOB with Excertion Physical Examination - Vital Signs Temperature: 97.7 F Blood Pressure: 117/80 Pulse: 98 Respirations: 18 Pulse Ox (%): 100 - Physical Exam General: Alert, In no apparent distress, Cachectic HEENT: Atraumatic, PERRLA, EOMI Neck: Supple, JVD not distended Respiratory: Clear to auscultation bilaterally, Normal air movement Cardiovascular: Regular rate/rhythm, Normal S1 S2 Gastrointestinal: Normal bowel sounds, No tenderness Musculoskeletal: No tenderness Integumentary: No rashes Neurological: Normal speech, Normal tone, Normal affect Lymphatics: No axilla or inguinal lymphadenopathy Assessment & Plan - Problems (Diagnosis) (1) End of life care Onset Date: 06/08/18 Current Visit: Yes Status: Acute Plan: Hospice consult. Patient was having difficulty discussing the situation. Fortunately he has an old friend at the bedside(Only got the gentleman's nickname. Jr who works at [employer]). Have also spoken on the phone with his son Jong for 15min. This was in regard to his prognosis, hospice and the arrangement of such. The family seems to be moving in the appropriate direction (2) Lung cancer Onset Date: 05/27/17 Current Visit: No Status: Chronic Plan: Has been seen by Dr. Singh. Will await Dr. Shah consult Qualifiers: Laterality: right (3) Cerebrovascular accident (stroke) Current Visit: No Status: Resolved Plan: History of stroke. No residual effects. Qualifiers: Laterality of affected vessel: left Discharge Plan: Other (hospice) Plan to discharge in: 24 Hours Physician Review: Patient Assessed, Agree with Above Assessment and Plan Critical Care: No Time Spent Managing Pts Care (In Minutes): 45
[2018-06-09] MEDS: guaiFENesin 100 MG/5 ML UCUP PO PRN (19:42)
[2018-06-09] MEDS: ZOLPIDEM TARTRATE 5 MG TABLET PO PRN (21:20)
[2018-06-10] MEDS: METHYLPREDNISOLONE 40 MG INJ IV SCH ×3 (00:36→17:27)
[2018-06-10] MEDS: IPRATROPIUM BROM 0.5MG/2.5ML NEB SCH ×2 (02:15→07:39)
[2018-06-10] MEDS: ARFORMOTEROL TARTRATE 15 MCG/2 ML VIAL.NEB NEB SCH (07:39)
[2018-06-10 08:22] VITALS: O2SAT 96
[2018-06-10] MEDS: BUPROPION HCL XL 150 MG TAB PO SCH (09:40)
--- NOTE | 2018-06-10 11:01 | P.PN ---
Subjective Date of Service: 06/10/18 Primary Care Provider: Amanda Chief Complaint: Shortness of breath pleural effusion Subjective: No new changes ([place] still has some sob) Review of Systems General: Weakness Respiratory: SOB with Excertion Physical Examination - Vital Signs Temperature: 98.6 F Blood Pressure: 135/93 Pulse: 105 Respirations: 24 Pulse Ox (%): 97 - Physical Exam General: Alert, In no apparent distress, Cachectic HEENT: Atraumatic, PERRLA, EOMI Neck: Supple, JVD not distended Respiratory: Clear to auscultation bilaterally, Normal air movement Cardiovascular: Regular rate/rhythm, Normal S1 S2 Gastrointestinal: Normal bowel sounds, No tenderness Musculoskeletal: No tenderness Integumentary: No rashes Neurological: Normal speech, Normal tone, Normal affect Lymphatics: No axilla or inguinal lymphadenopathy Assessment & Plan - Problems (Diagnosis) (1) End of life care Onset Date: 06/08/18 Current Visit: Yes Status: Acute Plan: Have had another long conversation with the son Jong(please see social sciences chair not for his phone number). The family had multiple opinions. However the son and the patient want him to move to be with his son in [place]. They do want hospice for the patient. The son agrees that medical care makes no sense. Have spent 20min on the phone with the son. have also discussed this with the social sciences chair. (2) Lung cancer Onset Date: 05/27/17 Current Visit: No Status: Chronic Plan: Patient has been having dyspnea on exertion . no low oxygen levels. However enlarge pleural effusion. The mediastinum is causing shifted, causing loss of lung volume. Qualifiers: Laterality: right (3) Cerebrovascular accident (stroke) Current Visit: No Status: Resolved Plan: History of stroke. No residual effects. Qualifiers: Laterality of affected vessel: left Discharge Plan: Other Plan to discharge in: 24 Hours - Code Status/Comfort Care Code Status Assessed: No Code Status: Do Not Resuscitate Physician Review: Patient Assessed, Agree with Above Assessment and Plan Critical Care: No Time Spent Managing Pts Care (In Minutes): 40
[2018-06-10] MEDS ORDERED: ARFORMOTEROL TARTRATE 15 MCG/2 ML VIAL.NEB NEB PRN (13:14)
[2018-06-10] MEDS ORDERED: IPRATROPIUM BROM 0.5MG/2.5ML NEB PRN (13:14)
[2018-06-10 17:11] VITALS: BP 145/93; TEMP 97.6
--- NOTE | 2018-06-10 17:44 | P.DS ---
Admission Date: 06/07/18 Discharge Date: 06/10/18 Primary Care Provider: Amanda Disposition: HOSPICE-HOME Reason for Admission: Shortness of breath pleural effusion - Problems (1) End of life care Onset Date: 06/08/18 Current Visit: Yes Status: Acute (2) Lung cancer Onset Date: 05/27/17 Current Visit: No Status: Chronic Qualifiers: Laterality: right (3) Cerebrovascular accident (stroke) Current Visit: No Status: Resolved Qualifiers: Laterality of affected vessel: left Brief History of Present Illness: Patient of mine with a history of stage 3 adenocarcinoma. He has been getting progressively more short of breath. The patient came to the ER. He was found to have an enlargement of a right pleural effusion. The patient has this in the past. However has enlarged. He has some mediastinal effusion. The patient has some tracheal deviation to the effusion. The patient was seen this morning by Dr. Singh. Who recommended hospice Hospital Course: Patient was admitted for shortness of breath. He has progressive of his cancer. Was deemed terminal by Dr. Singh and Dr. Wooten. Have had several long conversations with the patient and his family. The patient will be discharged to hospice. We wish him and his family the best of luck Vital Signs/Physical Exam: Temp Pulse Resp BP Pulse Ox 97.6 F 118 H 28 H 145/93 H 92 06/10/18 16:00 06/10/18 16:00 06/10/18 16:00 06/10/18 16:00 06/10/18 16:00 General: Alert, In no apparent distress, Cachectic HEENT: Atraumatic, PERRLA, EOMI Neck: Supple, JVD not distended Respiratory: Clear to auscultation bilaterally, Normal air movement Cardiovascular: Regular rate/rhythm, Normal S1 S2 Gastrointestinal: Normal bowel sounds, No tenderness Musculoskeletal: No tenderness Integumentary: No rashes Neurological: Normal speech, Normal tone, Normal affect Lymphatics: No axilla or inguinal lymphadenopathy Laboratory Data at Discharge: WBC 5.8 K/uL (4.3-10.9) D 06/08/18 05:46 Hgb 8.6 g/dL (13.6-17.9) L 06/08/18 05:46 Hct 26.5 % (39.6-49.0) L 06/08/18 05:46 Plt Count 434 K/uL (152-406) H 06/08/18 05:46 Sodium 139 mmol/L (136-145) 06/08/18 05:46 Potassium 4.4 mmol/L (3.5-5.1) 06/08/18 05:46 BUN 11 mg/dL (7-18) 06/08/18 05:46 Creatinine 0.74 mg/dL (0.55-1.3) 06/08/18 05:46 Glucose 92 mg/dL (74-106) 06/08/18 05:46 Home Medications: Hydrocodone/Acetaminophen [[place] 5-325 Tablet] 1 tab PO Q4H PRN 04/20/18 Phenylephrine HCl/Cod/Prometh [Phenergan Vc-Codeine Syrup] 10 ml PO Q4H PRN Tiotropium Br/Olodaterol HCl [Stiolto Respimat Inhal [place]] 2 puff IH DAILY Suvorexant [Belsomra] 10 mg PO BEDTIME 06/07/18 Diet: Regular Activity: Ad nicolle Physician Review: Patient Assessed, Agree with Above Assessment and Plan Time spent managing pt's care (in minutes): 50
== END 2018-06-10 18:37 | disposition hospice, home (50) | DRG 181 ==
LOC: ER 14:26 → ERHOLD 17:44 → 2ND 18:11
PROVIDERS: ADMIT Internal Medicine; ATTEND Internal Medicine
DX: C34.90 Malignant neoplasm of unspecified part of unspecified bronchus or lung (principal); J91.8 Pleural effusion in other conditions classified elsewhere; Z66 Do not resuscitate; Z51.5 Encounter for palliative care; I10 Essential (primary) hypertension; E86.0 Dehydration; Z86.73 Personal history of transient ischemic attack (TIA), and cerebral infarction without residual deficits; J44.9 Chronic obstructive pulmonary disease, unspecified; F17.210 Nicotine dependence, cigarettes, uncomplicated; J39.8 Other specified diseases of upper respiratory tract; D64.9 Anemia, unspecified
CPT/HCPCS: 36415; 71045; 71275; 80048; 82550; 83605; 84145; 84484; 85025; 87040; 87804; 93005; 94640; 94760; 96360; 99285; J2405; J2920; J7030; J7605; Q9967